=== PATIENT | female | born 1955 | race Caucasian/White ===

== ENCOUNTER 2023-03-23 07:42 | Inpatient (IN) | payer MEDICARE ==
[2023-03-23] MEDS ORDERED: MORPHINE SULFATE 4 MG/ML SYRINGE IV STA (08:30)
--- NOTE | 2023-03-23 08:34 | ED ---
General Adult HPI - General Chief complaint: Neck Pain/Injury Stated complaint: neck/head pain Time Seen by Provider: 03/23/23 08:12 Source: patient Mode of arrival: ambulatory Limitations: no limitations - History of Present Illness Initial comments: Dictation was produced using Clever dictation software. please excuse any grammatical, word or spelling errors. Chief Complaint: 67-year-old female presents with 2 days of neck pain History of Present Illness: 67-year-old female she presents to the ER for 2 days of left-sided neck pain. States that it's closer to her year. Is not worse when she turns her head or bends her head and neck. States that it hurts when she touches it. Denies any fevers. She is currently battling cellulitis. She's been on antibiotics for several weeks now. She does complain of some constitutional symptoms. Denies a sore throat. No runny nose. No cough. No diarrhea or urinary symptoms. The ROS documented in this emergency department record has been reviewed and confirmed by me. Those systems with pertinent positive or negative responses have been documented in the HPI. All other systems are other negative and/or noncontributory. - Related Data Allergies Allergy/AdvReac Type Severity Reaction Status Date / Time No Known Allergies Allergy Verified 03/23/23 08:05 Review of Systems ROS Statement: Those systems with pertinent positive or pertinent negative responses have been documented in the HPI. ROS Other: All systems not noted in ROS Statement are negative. Past Medical History Additional Past Medical History / Comment(s): Cellulitis legs History of Any Multi-Drug Resistant Organisms: None Reported Past Surgical History: No Surgical Hx Reported Past Psychological History: No Psychological Hx Reported Smoking Status: Never smoker Past Alcohol Use History: None Reported Past Drug Use History: None Reported General Exam - General Exam Comments Initial Comments: PHYSICAL EXAM: General Impression: Alert and oriented x3, not in acute distress HEENT: Normocephalic atraumatic, extra-ocular movements intact, pupils equal and reactive to light bilaterally, mucous membranes moist, palpatory tenderness to the superior insertion of the left sternocleidomastoid, there does appear to be a non-enlarged tender lymph node to the posterior cervical chain. No mastoid tenderness, TM on the left ear is unremarkable. Cardiovascular: Heart regular rate and rhythm Chest: Able to complete full sentences, no retractions, no tachypnea Abdomen: abdomen soft, non-tender, non-distended, no organomegaly Musculoskeletal: Pulses present and equal in all extremities, no peripheral steff ma Motor: no focal deficits noted Neurological: CN II-XII grossly intact, no focal motor or sensory deficits noted Skin: Intact with no visualized rashes Psych: Normal affect and mood Limitations: no limitations Course Vital Signs 03/23/23 08:03 Temperature 98.1 F Pulse Rate 83 Respiratory 20 Rate Blood Pressure 122/85 O2 Sat by Pulse 99 Oximetry Medical Decision Making - Medical Decision Making Was pt. sent in by a medical professional or institution (, PA, VIDEO NETWORK ENGINEER, urgent care, hospital, or care home...) When possible be specific @ -No Did you speak to anyone other than the patient for history (EMS, parent, family, police, friend...)? What history was obtained from this source @ -Discussed with as described above Did you review nursing and triage notes (agree or disagree)? Why? @ -I reviewed and agree with nursing and triage notes Were old charts reviewed (outside hosp., previous admission, EMS record, old EKG, old radiological studies, urgent care reports/EKG's, care home records)? Report findings @ -No old charts were reviewed Differential Diagnosis (chest pain, altered mental status, abdominal pain women, abdominal pain men, vaginal bleeding, musculoskeletal, weakness, fever, dyspnea, syncope, headache, dizziness, GI bleed, back pain, seizure, CVA, palpatations, mental health)? @ -Differential Fever: Pneumonia, viral URI, endocarditis, myocarditis, pericarditis, otitis, sinusitis, peritonsillar Abscess, retropharyngeal Abscess, epiglottitis, peritonitis, appendicitis, Maria L cystitis, diverticulitis, hepatitis, colitis, UTI, PID, TOA, pyelonephritis, prostatitis, epididymitis, meningitis, encephalitis, pulmonary embolism, CVA, thyroid storm, pancreatitis, adrenal crisis, cavernous sinus thrombosis, this is not meant to be an all-inclusive list. EKG interpreted by me (3pts min.). @ -None done X-rays interpreted by me (1pt min.). @ -None done CT interpreted by me (1pt min.). @ -None done U/S interpreted by me (1pt. min.). @ -None done What testing was considered but not performed or refused? (CT, X-rays, U/S, labs)? Why? @ -None What meds were considered but not given or refused? Why? @ -None Did you discuss the management of the patient with other professionals (professionals i.e. , PA, VIDEO NETWORK ENGINEER, lab, RT, psych nurse, web content & social media manager, career portals teacher, teacher, housing officer, casework manager)? Give summary @ -Discussed with hospitalist for admission Was smoking cessation discussed for >3mins.? @ -No Was critical care preformed (if so, how long)? @ -No Were there social determinants of health that impacted care today? How? (Homelessness, low income, unemployed, alcoholism, drug addiction, transportation, low edu. Level, literacy, decrease access to med. care, [facility], rehab)? @ -No Was there de-escalation of care discussed even if they declined (Discuss DNR or withdrawal of care, Hospice)? DNR status @ -No What co-morbidities impacted this encounter? (DM, HTN, Smoking, COPD, CAD, Cancer, CVA, ARF, Chemo, Hep., AIDS, mental health diagnosis, sleep apnea, morbid obesity)? @ -None Was patient admitted / discharged? Hospital course, mention meds given and route, prescriptions, significant lab abnormalities, going to OR and other pertinent info. @ -67-year-old female who reports constitutional symptoms and neck pain. States that she's been on antibiotics for alleged cellulitis. Her skin does not appear to be cellulitic. She does have constitutional symptoms. Leukopenia 2.3 she does appear to have dehydration. She states she does not feel well. There is concern of underlying infectious process versus hematologic issue. Patient be admitted for SIRS pending blood cultures urine studies. Undiagnosed new problem with uncertain prognosis? @ -No Drug Therapy requiring intensive monitoring for toxicity (Heparin, Nitro, Insulin, Cardizem)? @ -No Were any procedures done? @ -No Diagnosis/symptom? Acute, or Chronic, or Acute on Chronic? Uncomplicated ( without systemic symptoms) or Complicated (systemic symptoms)? @ -SIRS Side effects of treatment? @ -No Exacerbation, Progression, or Severe Exacerbation? @ -No Poses a threat to life or bodily function? How? (Chest pain, USA, GA, pneumonia, PE, COPD, DKA, ARF, appy, cholecystitis, CVA, Diverticulitis, Homicidal, Suicidal, threat to staff... and all critical care pts) @ -yes - Lab Data Result diagrams: 03/23/23 08:36 03/23/23 08:36 Lab Results 03/23/23 03/23/23 03/23/23 Range/Units 08:36 08:36 08:36 WBC 2.3 L (3.8-10.6) k/uL RBC 4.34 (3.80-5.40) m/uL Hgb 13.5 (11.4-16.0) gm/dL Hct 38.9 (34.0-46.0) % MCV 89.6 (80.0-100.0) fL MCH 31.2 (25.0-35.0) pg MCHC 34.8 (31.0-37.0) g/dL RDW 12.0 (11.5-15.5) % Plt Count 90 L (150-450) k/uL MPV 8.3 Neutrophils % (Manual) 64 % Band Neuts % (Manual) 6 % Lymphocytes % (Manual) 20 % Monocytes % (Manual) 6 % Eosinophils % (Manual) 4 % Neutrophils # (Manual) 1.60 (1.3-7.7) k/uL Lymphocytes # (Manual) 0.46 L (1.0-4.8) k/uL Monocytes # (Manual) 0.14 (0-1.0) k/uL Eosinophils # (Manual) 0.09 (0-0.7) k/uL Nucleated RBCs 0 (0-0) /100 WBC Manual Slide Review Performed Polychromasia Present Sodium 131 L (137-145) mmol/L Potassium 4.5 (3.5-5.1) mmol/L Chloride 100 (98-107) mmol/L Carbon Dioxide 16 L (22-30) mmol/L Anion Gap 15 mmol/L BUN 22 H (7-17) mg/dL Creatinine 1.61 H (0.52-1.04) mg/dL Est GFR (CKD-EPI)AfAm 37 (>60 ml/min/1.73 sqM) Est GFR (CKD-EPI)NonAf 32 (>60 ml/min/1.73 sqM) Glucose 92 (74-99) mg/dL Calcium 8.8 (8.4-10.2) mg/dL Influenza Type A (PCR) Not Detected (Not Detectd) Influenza Type B (PCR) Not Detected (Not Detectd) RSV (PCR) Not Detected (Not Detectd) SARS-CoV-2 (PCR) Not Detected (Not Detectd) Disposition Clinical Impression: SIRS (systemic inflammatory response syndrome) Disposition: ADMITTED IP TO THIS [facility] Condition: Fair Referrals: Liza Levine MD [Primary Care Provider] - 1-2 days Decision Time: 11:46
[2023-03-23 08:57] LABS: HCT 38.9 % (34.0-46.0); HGB 13.5 gm/dL (11.4-16.0); MCH 31.2 pg (25.0-35.0); MCHC 34.8 g/dL (31.0-37.0); MCV 89.6 fL (80.0-100.0); Mean Platelet Volume 8.3; RBC 4.34 m/uL (3.80-5.40); WBC 2.3 k/uL (3.8-10.6)
[2023-03-23 09:08] LABS: African American GFR (CKD) 37 (>60 ml/min/1.73 sqM); Anion Gap 15 mmol/L; Blood Urea Nitrogen 22 mg/dL (7-17); Calcium 8.8 mg/dL (8.4-10.2); Carbon Dioxide 16 mmol/L (22-30); Chloride 100 mmol/L (98-107); Glucose 92 mg/dL (74-99); Non-African American GFR(CKD) 32 (>60 ml/min/1.73 sqM); Potassium 4.5 mmol/L (3.5-5.1); Sodium 131 mmol/L (137-145)
[2023-03-23] MEDS ORDERED: SODIUM CHLORIDE 0.9% 1,000 ML IV STA ×2 (10:32→14:17)
[2023-03-23 10:47] LABS: Band Neutrophils % 6 %; Eosinophils # (M) 0.09 k/uL (0-0.7); Lymphocytes # (M) 0.46 k/uL (1.0-4.8); Monocytes # (M) 0.14 k/uL (0-1.0); Neutrophils % (M) 64 %; Nucleated Red Blood Cells 0 /100 WBC (0-0); Total Cells Counted 100
[2023-03-23 10:48] LABS: Platelet Count 90 k/uL (150-450); Polychromasia Present
[2023-03-23] MEDS ORDERED: ACETAMINOPHEN TAB 325 MG TAB PO PRN (11:41)
[2023-03-23] MEDS ORDERED: NALOXONE 0.4 MG/ML 1 ML VIAL IV PRN (11:41)
[2023-03-23] MEDS ORDERED: SODIUM CHLORIDE 0.9% 1,000 ML IV SCH (11:45)
[2023-03-23 12:06] LABS: Appearance,Urine Clear (Clear); Bacteria,Urine Rare /hpf; Bilirubin,Urine Negative (Negative); Blood,Urine Small (Negative); Color,Urine Light Yellow; Glucose,Urine (UA) Negative (Negative); Ketones,Urine Negative (Negative); Leukocyte Esterase,Urine Negative (Negative); Mucus,Urine Rare /hpf; Nitrite,Urine Negative (Negative); PH, Urine 5.5 (5.0-8.0); Protein,Urine Negative (Negative); RBC,Urine 17 /hpf (0-5); Specific Gravity,Urine 1.012 (1.001-1.035); Squamous Epithelial Cell,Urine <1 /hpf (0-4); Urobilinogen,Urine <2.0 mg/dL (<2.0); WBC,Urine 3 /hpf (0-5)
[2023-03-23] MEDS ORDERED: RX INFO: IV CONTRAST WAS GIVEN 1 EACH MISC MISCELLANE PRN (14:11)
[2023-03-23] MEDS: MORPHINE SULFATE 4 MG/ML SYRINGE IVP PRN ×2 (15:27→20:24)
--- NOTE | 2023-03-23 15:27 | CT ---
EXAMINATION TYPE: CT brain wo con DATE OF EXAM: 03/23/2023 COMPARISON: None HISTORY: cellulitis, rule out abscess. no contrast due to poor kidney fx CT DLP: 1083.[address] of the brain was performed. Right frontal lesion measuring 1.8 cm with surrounding vasogenic edema could reflect a metastatic les ion, primary glioma or abscess. MRI is recommended with and without contrast. No additional lesions i dentified. The ventricles, basal cisterns and sulci overlying the cerebral convexities demonstrate mild enlargem ent. There is no evidence for intracranial hemorrhage or sulcal effacement. There is decreased attenuation about the periventricular white matter and deep white matter of both c erebral hemispheres, compatible with chronic small vessel ischemia. Differential diagnosis does inclu de demyelination. No mass effects are seen.No midline shift. Osseous calvarium is intact. If symptoms persist consider MRI. IMPRESSION: 1. Right frontal lesion measuring 1.8 cm with surrounding vasogenic edema could reflect a metastatic lesion, primary glioma or abscess. MRI is recommended with and without contrast. No additional lesion s identified.
--- NOTE | 2023-03-23 15:50 | CT ---
Exclude EXAMINATION TYPE: CT neck chest without con DATE OF EXAM: 03/23/2023 COMPARISON: None HISTORY: cellulitis, rule out abscess. no contrast due to poor kidney fx CT DLP: [address] of the neck was performed without contrast limiting evaluation from the skull base through the antonio g apices. Contrast enhanced CT of the neck was performed from the skull base through the lung apices. AIRWAY: The supraglottic, glottic, and subglottic portions of the airway appear patent and free of mass. SALIVARY GLANDS: Mild edema left submandibular gland may reflect underlying laboratory change. No naun dence for abscess about the neck. THYROID GLAND: No nodules or masses seen. LYMPH NODES: Adenopathy left internal jugular chain measuring up to 2.6 x 1.6 cm. Additional 1.4 cm l ymph node. Apparently 1 cm lymph nodes bilaterally within the internal jugular chains. Subcentimeter lymph nodes posterior triangles bilaterally. LUNG APICES: No nodule or mass is seen. OTHER: Vascular structures are patent. No significant degenerative change of the cervical spine. N o abscess seen. There is masslike density right breast with skin thickening suspicious for malignancy . There is right axillary adenopathy measuring up to 2.6 cm. Additional enlarged lymph nodes are seen measuring greater than 1 cm right axilla. Sub-1 cm lymph nodes are seen within the left axilla. Mamm ographic and sonographic correlation recommended as malignancy is suspected. IMPRESSION: 1.There is masslike density right breast with skin thickening suspicious for malignancy. There is rig ht axillary adenopathy measuring up to 2.6 cm. Additional enlarged lymph nodes are seen measuring gre ater than 1 cm right axilla. Sub-1 cm lymph nodes are seen within the left axilla. Mammographic and s onographic correlation recommended as malignancy is suspected. 2. Mild fullness left submandibular gland with mild surrounding stranding which may reflect inflammat ory change and sialoadenitis. No evidence for abscess of the neck. EXAMINATION TYPE: CT neck chest without con DATE OF EXAM: 03/23/2023 COMPARISON: None HISTORY: cellulitis, rule out abscess. no contrast due to poor kidney fx CT DLP: [address] of the chest was performed with lung and mediastinal window settings submitted. The la ck of contrast limits evaluation of the vascular, mediastinal and parenchymal structures including th e upper abdomen. LUNGS: The lungs are clear and free of infiltrate. No atelectasis. No pulmonary nodule or mass is de tected. No pleural effusion. No CT evidence of interstitial lung disease. MEDIASTINUM/SHWETA: Thoracic aorta is of normal caliber with limited evaluation given lack of contrast . The heart is not enlarged. No evidence for mediastinal mass. No lymph nodes greater than 1cm. UPPER ABDOMEN: Partially imaged adrenal glands demonstrates masslike thickening. This dedicated CT of the abdomen and pelvis is recommended on a nonemergent basis. OTHER: No significant other abnormality. IMPRESSION: 1. Right breast mass with skin thickening right axillary adenopathy suspicious felt to reflect malig darshan of the breast until proven otherwise. Mammographic and sonographic correlation advised. 2. Bilateral adrenal thickening suspicious for metastatic disease.
--- NOTE | 2023-03-23 22:59 | P.CONS ---
History of Present Illness - Reason for Consult Consult date: 03/23/23 - History of Present Illness Patient is a 67-year-old female with a past medical history significant for an episode of cellulitis to the left lower abdominal wall and left upper thigh that was diagnosed and treated when she was in [place] patient mention after coming back she was evaluated by her primary care physician and apparently did have features of persistent cellulitis and received another course of antibiotic also mentioning that she received a course of antibiotic for the right mastitis patient about presenting to [facility] ER this morning for evaluation of left-sided neck pain that the pain has been going on for the last 2 days patient denies any history of any trauma describes the pain to be around her neck in the bed from intensity moderate without any significant radiation patient denies having any problem with hearing or URI symptoms and no drainage from the ear patient did have some nausea and vomiting no chest pain shortness of breath or cough no abdominal pain or diarrhea patient on presentation to the hospital was afebrile patient was not tachycardic hypotensive or hypoxic White count was slightly low at 2.3 with lymphopenia BUN/creatinine mildly elevated urine has been negative influenza RSV and COVID testing was negative, patient has been admitted to the floor subsequently the patient did have a CT of the neck and the brain which has been completed with report pending infectious he was consulted regarding possible cellulitis and need for antibiotic therapy Past Medical History Additional Past Medical History / Comment(s): Cellulitis legs History of Any Multi-Drug Resistant Organisms: None Reported Past Surgical History: No Surgical Hx Reported Past Psychological History: No Psychological Hx Reported Smoking Status: Never smoker Past Alcohol Use History: None Reported Past Drug Use History: None Reported - Past Family History Father Family Medical History: No Reported History Medications and Allergies Home Medications Medication Instructions Recorded Confirmed Type Sulfamethox-Tmp 800-160Mg [Bactrim 1 tab PO BID 03/23/23 03/23/23 History DS 800-160 mg] Allergies Allergy/AdvReac Type Severity Reaction Status Date / Time cat dander Allergy eye Verified 03/23/23 12:24 swelling & itching poison chris extract Allergy Rash/Hives Verified 03/23/23 12:24 Physical Exam Vitals: Vital Signs Temp Pulse Resp BP Pulse Ox 03/23/23 08:03 98.1 F 83 20 122/85 99 Intake and Output 03/22/23 03/23/23 03/23/23 22:59 06:59 14:59 Other: Weight 60.328 kg Results CBC & Chem 7: 03/23/23 08:36 03/23/23 08:36 Labs: Abnormal Lab Results - Last 24 Hours (Table) 03/23/23 03/23/23 03/23/23 Range/Units 08:36 08:36 11:52 WBC 2.3 L (3.8-10.6) k/uL Plt Count 90 L (150-450) k/uL Lymphocytes # (Manual) 0.46 L (1.0-4.8) k/uL Sodium 131 L (137-145) mmol/L Carbon Dioxide 16 L (22-30) mmol/L BUN 22 H (7-17) mg/dL Creatinine 1.61 H (0.52-1.04) mg/dL Urine Blood Small H (Negative) Urine RBC 17 H (0-5) /hpf Urine Bacteria Rare H (None) /hpf Urine Mucus Rare H (None) /hpf Assessment and Plan Plan: 1patient presented to hospital with pain to the left side of the neck currently there is no evidence of any swelling and redness to be suspicious for cellulitis, patient did have a CT of the neck to rule out any deeper pathology with the report currently pending 2-patient also was complaining of cellulitis to the left abdominal and left upper thigh area currently with no signs of any cellulitis 3-patient did mention some swelling and cellulitis to the right breast area patient did have slight enlargement of the right breast compared to the left and other etiologies need to be ruled out will benefit from ultrasound of the right breast area 4-patient is currently afebrile did have mild leukopenia at the patient spiking fever however recommend obtaining blood cultures and check inflammatory markers, with low clinical suspicious for infectious etiology we will hold on adding any systemic antibiotic therapy at this point We will follow on clinical condition and cultures to further adjust medication if needed Thank you for this consultation we will follow the patient along with you Dictation was produced using Catmoj[employer] software. please excuse any grammatical, word or spelling errors. Time with Patient: Greater than 30
[2023-03-24] MEDS: MORPHINE SULFATE 4 MG/ML SYRINGE IVP PRN (00:34)
[2023-03-24 09:22] LABS: Basophils % (A) 1 %; Eosinophils # (A) 0.1 k/uL (0-0.7); Eosinophils % (A) 3 %; HCT 37.6 % (34.0-46.0); HGB 12.2 gm/dL (11.4-16.0); Lymphocytes # (A) 0.6 k/uL (1.0-4.8); Lymphocytes % (A) 23 %; MCH 30.9 pg (25.0-35.0); MCHC 32.5 g/dL (31.0-37.0); Mean Platelet Volume 7.7; Monocytes # (A) 0.2 k/uL (0-1.0); Monocytes % (A) 9 %; Neutrophils # (A) 1.4 k/uL (1.3-7.7); Neutrophils % (A) 60 %; Platelet Count 101 k/uL (150-450); RBC 3.95 m/uL (3.80-5.40); RDW 12.4 % (11.5-15.5); WBC 2.4 k/uL (3.8-10.6)
[2023-03-24 09:30] LABS: MCV 95.1 fL (80.0-100.0)
[2023-03-24 12:06] LABS: ALT 23 U/L (8-44); AST 34 U/L (13-35); Albumin 3.6 g/dL (3.8-4.9); Alkaline Phosphatase 42 U/L (41-126); Calcium 7.8 mg/dL (8.7-10.3); Chloride 102 mmol/L (96-109); Globulin 2.4 g/dL (1.6-3.3); Glucose 101 mg/dL (70-110); Potassium 4.4 mmol/L (3.5-5.5); Sodium 130 mmol/L (135-145); Total Bilirubin 0.2 mg/dL (0.3-1.2)
[2023-03-24] MEDS ORDERED: IOPAMIDOL CONTRAST (ORAL USE) VIAL PO PRN (12:39)
--- NOTE | 2023-03-24 14:48 | P.HPIM ---
History of Present Illness H&P Date: 03/23/23 Xochilt Merida, is a 67 year-old female who presented to [facility] ER with a chief complaints of left neck pain. Patient reports the pain started significantly over the past 2 days on her left-sided neck and is sensitive to touch. Patient reports she has been having issues with cellulitis on multiple parts of her body was treated outpatient. Patient reports started on her legs and her chest wall she was concerned that he could be on her neck but no signs of rash noted. Patient has a past medical history of ovarian cancer in 2016. Patient denies any other recent illness this is the cellulitis. Patient denies weight loss or decreased appetite. At this time patient will be admitted. Infectious disease service is consulted. Patient was started on IV antibiotics vital signs reveal temp 98.6, heart rate 79, respiratory rate 17, blood pressure 130/78 with a pulse ox 98% on room air. Review of Systems Please refer to HPI otherwise unremarkable Past Medical History Additional Past Medical History / Comment(s): Cellulitis legs History of Any Multi-Drug Resistant Organisms: None Reported Past Surgical History: No Surgical Hx Reported Past Psychological History: No Psychological Hx Reported Smoking Status: Never smoker Past Alcohol Use History: None Reported Past Drug Use History: None Reported - Past Family History Father Family Medical History: No Reported History Medications and Allergies Home Medications Medication Instructions Recorded Confirmed Type Sulfamethox-Tmp 800-160Mg [Bactrim 1 tab PO BID 03/23/23 03/23/23 History DS 800-160 mg] Allergies Allergy/AdvReac Type Severity Reaction Status Date / Time cat dander Allergy eye Verified 03/23/23 12:24 swelling & itching poison chris extract Allergy Rash/Hives Verified 03/23/23 12:24 Physical Exam Vitals: Vital Signs Temp Pulse Resp BP Pulse Ox 03/23/23 13:06 98.0 F 81 16 136/76 99 03/23/23 08:03 98.1 F 83 20 122/85 99 Intake and Output 03/22/23 03/23/23 03/23/23 22:59 06:59 14:59 Other: Weight 60.328 kg Head normocephalic Neck supple Lungs clear to auscultation bilaterally no wheezing or crackles Heart regular rate and rhythm S1-S2, no rub or gallop Abdomen is soft nontender nondistended positive bowel sounds no hepatosplenomegaly Extremities no edema Neuro alert and orientated to 3 Results CBC & Chem 7: 03/24/23 07:23 03/24/23 07:23 Labs: Abnormal Lab Results - Last 24 Hours (Table) 03/23/23 03/23/23 03/23/23 Range/Units 08:36 08:36 11:52 WBC 2.3 L (3.8-10.6) k/uL Plt Count 90 L (150-450) k/uL Lymphocytes # (Manual) 0.46 L (1.0-4.8) k/uL Sodium 131 L (137-145) mmol/L Carbon Dioxide 16 L (22-30) mmol/L BUN 22 H (7-17) mg/dL Creatinine 1.61 H (0.52-1.04) mg/dL Urine Blood Small H (Negative) Urine RBC 17 H (0-5) /hpf Urine Bacteria Rare H (None) /hpf Urine Mucus Rare H (None) /hpf Assessment and Plan Assessment: 1. Left-sided neck pain 2. Recent cellulitis of the neck, treated as outpatient with oral Bactrim 3. Dehydration with acute kidney injury with elevated BUN and creatinine on presentation 4. Abnormal computed tomography scan of the head neck and chest, initially done looking for potential abscess, but revealed evidence of breast mass and brain metastases 5. Pancytopenia on presentation 6. History of ovarian cancer in 2016 DVT prophylaxis Lovenox. GI prophylaxis Protonix Infectious disease service is consulted Blood culture ordered Patient started on IV antibiotics Computed tomography scan ordered Oncology consultation requested Will follow closely Time with Patient: Greater than 30 (Greater than 60% of the total time spent in counseling and coordination of care)
--- NOTE | 2023-03-24 14:49 | P.PN ---
Subjective Progress Note Date: 03/24/23 Xochilt Merida, is a 67 year-old female who presented to [facility] ER with a chief complaints of left neck pain. Patient reports the pain started significantly over the past 2 days on her left-sided neck and is sensitive to touch. Patient reports she has been having issues with cellulitis on multiple parts of her body was treated outpatient. Patient reports started on her legs and her chest wall she was concerned that he could be on her neck but no signs of rash noted. Patient has a past medical history of ovarian cancer in 2016. Patient denies any other recent illness this is the cellulitis. Patient denies weight loss or decreased appetite. At this time patient will be admitted. Infectious disease service is consulted. Patient was started on IV antibiotics vital signs reveal temp 98.6, heart rate 79, respiratory rate 17, blood pressure 130/78 with a pulse ox 98% on room air. On 03/24/2023 patient is alert and oriented 3. Patient reports improvement with neck pain remains on IV antibiotics Kefzol. Computed tomography scan completed showing concerns of masslike density in the right breast with skin thickening suspicious for malignancy is also right axillary adenopathy measuring up to 2.6 cm with an additional enlarged lymph nodes. Head CT completed showing right frontal lesion measuring 1.8 cm with surrounding vasogenic edema could reflect a metastatic lesion. Oncology services have been consulted and results to be reviewed and interpreted per oncology Objective - Vital Signs Vital signs: Vital Signs Temp 98.0 F 03/24/23 07:19 Pulse 72 03/24/23 07:19 Resp 19 03/24/23 07:19 BP 114/67 03/24/23 07:19 Pulse Ox 98 03/24/23 07:19 FiO2 Intake & Output 03/23/23 03/24/23 03/24/23 18:59 06:59 18:59 Weight 60.328 kg Other: Voiding Method Toilet Toilet # Voids 1 2 2 - Exam Head normocephalic Neck supple Lungs clear to auscultation bilaterally no wheezing or crackles Heart regular rate and rhythm S1-S2, no rub or gallop Abdomen is soft nontender nondistended positive bowel sounds no hepatospl enomegaly Extremities no edema Neuro alert and orientated to 3 - Labs CBC & Chem 7: 03/24/23 07:23 03/24/23 07:23 Labs: Abnormal Lab Results - Last 24 Hours (Table) 03/23/23 03/24/23 Range/Units 11:52 07:23 WBC 2.4 L (3.8-10.6) k/uL Plt Count 101 L (150-450) k/uL Lymphocytes # 0.6 L (1.0-4.8) k/uL Urine Blood Small H (Negative) Urine RBC 17 H (0-5) /hpf Urine Bacteria Rare H (None) /hpf Urine Mucus Rare H (None) /hpf Assessment and Plan Plan: 1. Left-sided neck pain 2. Recent cellulitis of the neck, treated as outpatient with oral Bactrim 3. Dehydration with acute kidney injury with elevated BUN and creatinine on presentation 4. Abnormal computed tomography scan of the head neck and chest, initially done looking for potential abscess, but revealed evidence of breast mass and brain metastases 5. Pancytopenia on presentation 6. History of ovarian cancer in 2016 DVT prophylaxis Lovenox. GI prophylaxis Protonix Infectious disease service is consulted Blood culture ordered Patient started on IV antibiotics Computed tomography scan ordered Oncology consultation requested Will follow closely
--- NOTE | 2023-03-24 15:47 | P.PN ---
Subjective Progress Note Date: 03/24/23 Principal diagnosis: Reason for follow-up is question of right breast cellulitis, neck Cellulitis Patient is a 67-year-old female with a past medical history significant for an episode of cellulitis to the left lower abdominal wall and left upper thigh that was diagnosed and treated when she was in [place], also with a history of ovarian cancer presenting to the hospital with left-sided neck pain and a question of possible cellulitis On today's evaluation that is 03/24/2023, the patient denies any fever or any chills, the patient is breathing comfortably on room air without the need for supplemental oxygen, patient denies chest pain shortness of breath and no s ignificant cough or sputum production, patient denies Abdominal pain, no nausea/vomiting and denies having any diarrhea, the patient reporting improvement in the left-sided neck pain with more mobility Patient did have white count of 2.4 creatinine 1.0, patient did have a CT of the neck and chest with evidence of right breast mass with skin thickening , right axillary adenopathy, CT of the brain right frontal lesion with surrounding vasogenic edema Objective - Vital Signs Vital signs: Vital Signs Temp 98.0 F 03/24/23 07:19 Pulse 72 03/24/23 07:19 Resp 19 03/24/23 07:19 BP 114/67 03/24/23 07:19 Pulse Ox 98 03/24/23 07:19 FiO2 Intake & Output 03/23/23 03/24/23 03/24/23 18:59 06:59 18:59 Weight 60.328 kg Other: Voiding Method Toilet Toilet # Voids 1 2 2 - Exam GENERAL DESCRIPTION: An elderly female lying in bed in no distress RESPIRATORY SYSTEM: Unlabored breathing , clear to auscultation anteriorly HEART: S1 S2 regular rate and rhythm , ABDOMEN: Soft , no tenderness EXTREMITIES: No edema feet - Labs CBC & Chem 7: 03/24/23 07:23 03/24/23 07:23 Labs: Abnormal Lab Results - Last 24 Hours (Table) 03/24/23 03/24/23 Range/Units 07: 07:23 WBC 2.4 L (3.8-10.6) k/uL Plt Count 101 L (150-450) k/uL Lymphocytes # 0.6 L (1.0-4.8) k/uL Sodium 130 L (135-145) mmol/L Carbon Dioxide 20.0 L (21.6-31.8) mmol/L Calcium 7.8 L (8.7-10.3) mg/dL Total Bilirubin 0.2 L (0.3-1.2) mg/dL Total Protein 6.0 L (6.2-8.2) g/dL Albumin 3.6 L (3.8-4.9) g/dL Albumin/Globulin Ratio 1.50 L (1.60-3.17) Ratio Assessment and Plan (1) Leukopenia Current Visit: Yes Status: Acute Code(s): D72.819 - DECREASED WHITE BLOOD CELL COUNT, UNSPECIFIED SNOMED Code(s): 03040063 Plan: 1patient presented to hospital with pain to the left side of the neck currently there is no evidence of any swelling and redness to be suspicious for cellulitis, 2-patient also was complaining of cellulitis to the left abdominal and left upper thigh area currently with no signs of any cellulitis 3-patient did mention some swelling and cellulitis to the right breast area clinically not behaving as cellulitis with abnormal CT suspicious for possible metastatic breast cancer for which oncology has been consulted. We'll discontinue cefazolin Dictation was produced using [employer] dictation software. please excuse any grammatical, word or spelling errors. Time with Patient: Less than 30
--- NOTE | 2023-03-24 23:55 | P.CONS ---
History of Present Illness - Reason for Consult Consult date: 03/24/23 possible right breast mass - History of Present Illness the patient is 67-year-old white female, with overall well-controlled medical problems and baseline. The patient had presented because of left neck and left shoulder pain. The patient interestingly, or the past 3 months has had partial describes a cellulitis of the skin and different sites including the bilateral upper and outer thigh areas, as well as now the left neck area. He states that recently she had also developed swelling, and thickening with some tenderness of the right breast that had actually improved The patient had a CT of the neck and chest, as well as CT of the brain done. This showed thickening of the skin of the right breast with underlying mass not ruled out, as well as right axillary adenopathy. There appeared to be possibility of bilateral adrenal tumors. CT of the brain showed vasogenic edema involving The right frontal lobe, concerning for mass. patient had a history of ovarian cancer, treated with surgery and chemotherapy by Dr. Bejarano in 2016. She states that she is on regular follow-up, including CT scans, in the most recent done 3-4 months ago according to her. Review of Systems Constitutional: Reports fatigue Eyes: denies blurred vision, denies pain Ears: deny: decreased hearing, ear discharge, earache, tinnitus Ears, nose, mouth and throat: Denies headache, Denies sore throat Breasts: right: as per HPI Cardiovascular: Denies chest pain, Denies shortness of breath Respiratory: Denies cough Gastrointestinal: Denies abdominal pain, Denies diarrhea, Denies nausea, Denies vomiting Genitourinary: Reports as per HPI Menstruation: Reports postmenopausal Musculoskeletal: Reports as per HPI Integumentary: Reports as per HPI Neurological: Denies numbness, Denies weakness Psychiatric: Denies anxiety, Denies depression Endocrine: Denies fatigue, Denies weight change Hematologic/Lymphatic: Reports as per HPI Past Medical History Additional Past Medical History / Comment(s): Cellulitis legs History of Any Multi-Drug Resistant Organisms: None Reported Past Surgical History: No Surgical Hx Reported Past Psychological History: No Psychological Hx Reported Smoking Status: Never smoker Past Alcohol Use History: None Reported Past Drug Use History: None Reported - Past Family History Father Family Medical History: No Reported History Medications and Allergies Home Medications Medication Instructions Recorded Confirmed Type Sulfamethox-Tmp 800-160Mg [Bactrim 1 tab PO BID 11/23/23 11/23/23 History DS 800-160 mg] Allergies Allergy/AdvReac Type Severity Reaction Status Date / Time cat dander Allergy eye Verified 03/23/23 12:24 swelling & itching poison chris extract Allergy Rash/Hives Verified 03/23/23 12:24 Physical Exam Vitals: Vital Signs Temp Pulse Resp BP Pulse Ox 03/24/23 20:08 98 F 75 18 148/80 97 03/24/23 14:00 98.5 F 78 18 129/80 98 03/24/23 07:19 98.0 F 72 19 114/67 98 03/24/23 07:00 72 19 03/24/23 01:37 98.4 F 75 18 114/68 97 Intake and Output 03/24/23 03/24/23 03/25/23 14:59 22:59 06:59 Other: Voiding Method Toilet # Voids 2 6 # Bowel Movements 1 - Constitutional General appearance: no acute distress - EENT Eyes: EOMI, PERRLA ENT: hearing grossly normal, normal oropharynx - Neck Neck: no lymphadenopathy, other (thickening of the skin of the left upper neck, with tenderness on palpation) Thyroid: bilateral: normal size - Respiratory Respiratory: bilateral: CTA - Cardiovascular Rhythm: regular Heart sounds: normal: S1, S2 - Gastrointestinal General gastrointestinal: normal bowel sounds, soft - Integumentary skin finding left upper neck Right breast examination reveals some induration involving the right lateral breast, a somewhat more prominent thickening in the retroareolar area - Neurologic Neurologic: CNII-XII intact - Musculoskeletal Musculoskeletal: strength equal bilaterally - Psychiatric Psychiatric: A&O x's 3 (right breast exam done in presence of female RN. Some thickening of the skin of the right lateral breast, without erythema or tenderness. This is more prominent in the retro etiology area, with underlying mass not ruled out) breast exam, with findings as noted above Patient also has a large lymph node, form to hard, in the right central axilla that appears to be relatively immobile. This is about 3-4 cm Results CBC & Chem 7: 03/24/23 07:23 03/24/23 07:23 Labs: Abnormal Lab Results - Last 24 Hours (Table) 03/24/23 03/24/23 Range/Units 07:23 07:23 WBC 2.4 L (3.8-10.6) k/uL Plt Count 101 L (150-450) k/uL Lymphocytes # 0.6 L (1.0-4.8) k/uL Sodium 130 L (135-145) mmol/L Carbon Dioxide 20.0 L (21.6-31.8) mmol/L Calcium 7.8 L (8.7-10.3) mg/dL Total Bilirubin 0.2 L (0.3-1.2) mg/dL Total Protein 6.0 L (6.2-8.2) g/dL Albumin 3.6 L (3.8-4.9) g/dL Albumin/Globulin Ratio 1.50 L (1.60-3.17) Ratio Comments: CT neck report reviewed CT scan - chest: report reviewed CT Scan - head: report reviewed Assessment and Plan (1) Breast mass Narrative/Plan: the patient's imaging, as well as physical exam findings are not definitive for a breast mass, but the same is not ruled out. The patient does have significan tly enlarged lymph node in the right axilla The imaging findings and implications were discussed in detail with her. She was advised that these findings are concerning for malignancy an additional w orkup would be strongly recommended to try to confirm, or rule out, the same. - I recommended right breast and right axillary ultrasound, with plan for a diagnostic procedure that this biopsy revealing ultrasound is suspicious. Current Visit: Yes Status: Acute Code(s): N63.0 - UNSPECIFIED LUMP IN UNSPECIFIED BREAST SNOMED Code(s): 30788796 (2) Brain mass Narrative/Plan: the CT scan raises the possibility of a right frontal lobe mass. The patient is asymptomatic. We discussed these findings, and MRI of the brain with contrast was strongly recommended the patient was agreeable to proceeding in this was ordered Current Visit: Yes Status: Acute Code(s): G93.89 - OTHER SPECIFIED DISORDERS OF BRAIN SNOMED Code(s): 770651169 (3) Bicytopenia Narrative/Plan: etiology is not immediately clear. This could be due to a bone marrow with some chronic, ongoing damage from her previous chemotherapy, superimposed infection, versus other. Labs workup the same will be ordered. Current Visit: Yes Status: Acute Code(s): D75.89 - OTHER SPECIFIED DISEASES OF BLOOD AND BLOOD-FORMING ORGANS SNOMED Code(s): 00749235 Plan: the above plan was discussed in detail with ID. They feel that on clinical exam, actually cellulitis appears to be somewhat less likely. add : the above plan was discussed in detail with the patient will bleed to the same. I was subsequently informed by nursing that the patient had refused the scans, and wanted to follow-up with Dr. Bejarano for further workup. She was advised that he is purely a [employer]ITION [employer]IST[employer] onc specialist, but at this time the patient remained unwilling to change her decision
[2023-03-25] MEDS: PANTOPRAZOLE 40 MG TABLET PO SCH (06:11)
[2023-03-25] MEDS: ENOXAPARIN 40 MG/0.4 ML SYRINGE SQ SCH (08:48)
[2023-03-25 09:34] LABS: Basophils # (A) 0.01 X 10*3/uL (0.00-0.10); Basophils % (A) 0.3 %; Eosinophils # (A) 0.13 X 10*3/uL (0.04-0.35); Eosinophils % (A) 4.3 %; HCT 40.3 % (37.2-46.3); HGB 13.3 g/dL (12.0-15.0); Lymphocytes # (A) 1.39 X 10*3/uL (0.90-5.00); Lymphocytes % (A) 45.7 %; Mean Platelet Volume 9.8 FL (9.5-12.2); Monocytes # (A) 0.43 X 10*3/uL (0.20-1.00); Monocytes % (A) 14.1 %; NRBC Per 100 WBC 0 X 10*3/uL (0.00-0.01); Neutrophils # (A) 1.07 X 10*3/uL (1.80-7.70); Neutrophils % (A) 35.3 %; Platelet Count 149 X 10*3/uL (140-440); RBC 4.43 X 10*6/uL (4.10-5.20); WBC 3.04 X 10*3/uL (4.50-10.00)
[2023-03-25 10:14] LABS: ALT 24 U/L (8-44); AST 33 U/L (13-35); Albumin 4.2 g/dL (3.8-4.9); Albumin/Globulin Ratio 1.45 Ratio (1.60-3.17); Alkaline Phosphatase 48 U/L (41-126); Blood Urea Nitrogen 12.6 mg/dL (9.0-27.0); Calcium 8.9 mg/dL (8.7-10.3); Carbon Dioxide 21.2 mmol/L (21.6-31.8); Chloride 107 mmol/L (96-109); Globulin 2.9 g/dL (1.6-3.3); Glucose 94 mg/dL (70-110); Potassium 4.4 mmol/L (3.5-5.5); Sodium 137 mmol/L (135-145); Total Bilirubin 0.3 mg/dL (0.3-1.2); Total Protein 7.1 g/dL (6.2-8.2)
[2023-03-25] MEDS ORDERED: VANCOMYCIN IV PER PHARMACY 1 EACH MISC MISCELLANE PRN (10:39)
[2023-03-25] MEDS ORDERED: VANCOMYCIN 1,000 MG in SODIUM CHLORIDE 0.9% 250 ML IVPB SCH (11:00)
--- NOTE | 2023-03-25 20:29 | P.PN ---
Subjective Progress Note Date: 03/25/23 Principal diagnosis: Reason for follow-up is question of right breast cellulitis, neck Cellulitis Patient is a 67-year-old female with a past medical history significant for an episode of cellulitis to the left lower abdominal wall and left upper thigh that was diagnosed and treated when she was in [place], also with a history of ovarian cancer presenting to the hospital with left-sided neck pain and a question of possible cellulitis On today's evaluation that is 03/25/2023, the patient remains to be afebrile, the patient is breathing comfortably on room air and the patient denies any shortness of breath, the patient denies chest pain or any cough , patient denies any nausea/vomiting abdominal pain or diarrhea, patient pain to the neck area has improved. Patient did have a white count of 3.04, creatinine is 1.0, blood cultures Grew positive gram-positive cocci. Objective - Vital Signs Vital signs: Vital Signs Temp 98.2 F 03/25/23 07:13 Pulse 71 03/25/23 07:13 Resp 16 03/25/23 07:13 BP 136/82 03/25/23 07:13 Pulse Ox 98 03/25/23 07:13 FiO2 Intake & Output 03/24/23 03/25/23 03/25/23 18:59 06:59 18:59 Other: Voiding Method Toilet Toilet # Voids 6 2 # Bowel Movements 1 1 - Exam GENERAL DESCRIPTION: An elderly female lying in bed in no distress RESPIRATORY SYSTEM: Unlabored breathing , clear to auscultation anteriorly HEART: S1 S2 regular rate and rhythm , ABDOMEN: Soft , no tenderness EXTREMITIES: No edema feet - Labs CBC & Chem 7: 03/25/23 06:19 03/25/23 06:19 Labs: Abnormal Lab Results - Last 24 Hours (Table) 03/24/23 03/25/23 03/25/23 Range/Units 07:23 06:19 06:19 WBC 3.04 L (4.50-10.00) X 10*3/uL Neutrophils # 1.07 L (1.80-7.70) X 10*3/uL Sodium 130 L (135-145) mmol/L Carbon Dioxide 20.0 L 21.2 L (21.6-31.8) mmol/L Calcium 7.8 L (8.7-10.3) mg/dL Total Bilirubin 0.2 L (0.3-1.2) mg/dL Total Protein 6.0 L (6.2-8.2) g/dL Albumin 3.6 L (3.8-4.9) g/dL Albumin/Globulin Ratio 1.50 L 1.45 L (1.60-3.17) Ratio Microbiology - Last 24 Hours (Table) 03/23/23 08:47 Blood Culture Gram Stain - Preliminary Blood 03/23/23 08:30 Blood Culture - Preliminary Blood Assessment and Plan (1) Leukopenia Current Visit: Yes Status: Acute Code(s): D72.819 - DECREASED WHITE BLOOD CELL COUNT, UNSPECIFIED SNOMED Code(s): 41958785 Plan: 1patient presented to hospital with pain to the left side of the neck currently there is no evidence of any swelling and redness to be suspicious for cellulitis, 2-patient also was complaining of cellulitis to the left abdominal and left upper thigh area currently with no signs of any cellulitis 3patient with a positive blood culture with gram-positive cocci which could not be identified by [employer] with question of micrococcus and likely contamination as the patient has no clinical disease to go along with it patient is afebrile and no leukocytosis this was explained to the patient and her in layman terms that more likely she does not have a true bladder infection however they have been very concerned and has been insisting on antibiotic therapy vancomycin has been added blood cultures have been repeated before addition of the vancomycin we will wait for the blood cultures to be finalized and for now continue with vancomycin while watching his kidney function closely significant mount of time was spent with the patient and has been and multiple questions were answered Dictation was produced using [employer] software. please excuse any grammatical, word or spelling errors.
[2023-03-26 08:34] VITALS: BP 121/84; PULSE 85; RESP 16; TEMP 98.1
[2023-03-26] MEDS: ENOXAPARIN 40 MG/0.4 ML SYRINGE SQ SCH (09:02)
[2023-03-26] MEDS: PANTOPRAZOLE 40 MG TABLET PO SCH (09:02)
--- NOTE | 2023-03-26 10:06 | P.PN ---
Subjective Progress Note Date: 03/25/23 Xochilt Merida, is a 67 year-old female who presented to [facility] ER with a chief complaints of left neck pain. Patient reports the pain started significantly over the past 2 days on her left-sided neck and is sensitive to touch. Patient reports she has been having issues with cellulitis on multiple parts of her body was treated outpatient. Patient reports started on her legs and her chest wall she was concerned that he could be on her neck but no signs of rash noted. Patient has a past medical history of ovarian cancer in 2016. Patient denies any other recent illness this is the cellulitis. Patient denies weight loss or decreased appetite. At this time patient will be admitted. Infectious disease service is consulted. Patient was started on IV antibiotics vital signs reveal temp 98.6, heart rate 79, respiratory rate 17, blood pressure 130/78 with a pulse ox 98% on room air. On 03/24/2023 patient is alert and oriented 3. Patient reports improvement with neck pain remains on IV antibiotics Kefzol. Computed tomography scan completed showing concerns of masslike density in the right breast with skin thickening suspicious for malignancy is also right axillary adenopathy measuring up to 2.6 cm with an additional enlarged lymph nodes. Head CT completed showing right frontal lesion measuring 1.8 cm with surrounding vasogenic edema could reflect a metastatic lesion. Oncology services have been consulted and results to be reviewed and interpreted per oncology On 03/25/2023 patient is alert and oriented 3. In-depth conversation held with patient and all questions answered. Awaiting repeat blood culture 90 recommendation. At this time patient denies chest pain or shortness of breath. Patient denies nausea vomiting or diarrhea. Patient denies any urinary burning or frequency Objective - Vital Signs Vital signs: Vital Signs Temp 98.1 F 03/26/23 07:28 Pulse 85 03/26/23 07:28 Resp 16 03/26/23 07:28 BP 121/84 03/26/23 07:28 Pulse Ox 98 03/26/23 07:28 FiO2 Intake & Output 03/25/23 03/26/23 03/26/23 18:59 06:59 18:59 Intake Total 1080 Balance 1080 Intake: Oral 1080 Other: Voiding Method Toilet # Voids 3 2 - Exam Head normocephalic Neck supple Lungs clear to auscultation bilaterally no wheezing or crackles Heart regular rate and rhythm S1-S2, no rub or gallop Abdomen is soft nontender nondistended positive bowel sounds no hepatosplenomegaly Extremities no edema Neuro alert and orientated to 3 - Labs CBC & Chem 7: 03/25/23 06:19 03/25/23 06:19 Labs: Abnormal Lab Results - Last 24 Hours (Table) 03/25/23 Range/Units 06:19 Carbon Dioxide 21.2 L (21.6-31.8) mmol/L Albumin/Globulin Ratio 1.45 L (1.60-3.17) Ratio Microbiology - Last 24 Hours (Table) 03/23/23 08:30 Blood Culture - Preliminary Blood 03/23/23 08:47 Blood Culture Gram Stain - Preliminary Blood Assessment and Plan Assessment: 1. Left-sided neck pain 2. Recent cellulitis of the neck, treated as outpatient with oral Bactrim 3. Dehydration with acute kidney injury with elevated BUN and creatinine on presentation 4. Abnormal computed tomography scan of the head neck and chest, initially done looking for potential abscess, but revealed evidence of breast mass and brain metastases 5. Pancytopenia on presentation 6. History of ovarian cancer in 2016 7. Positive blood culture possible contamination patient is on vancomycin ID following repeat culture ordered DVT prophylaxis Lovenox. GI prophylaxis Protonix Infectious disease service is consulted Blood culture ordered Patient started on IV antibiotics Computed tomography scan ordered Oncology consultation requested Will follow closely
--- NOTE | 2023-03-26 10:11 | P.DS ---
Providers Date of admission: 03/23/23 11:42 Expected date of discharge: 03/26/23 Attending physician: Philippe Shi Consults: 03/23/23 11:41 Consult Physician Routine Consulting Provider: Luba Perez Consult Reason/Comments: sirs Do you want consulting provider notified?: Yes 03/23/23 14:14 Consult Physician Routine Consulting Provider: Luba Perez Consult Reason/Comments: cellulitis Do you want consulting provider notified?: Yes 03/23/23 17:00 Consult Physician Routine Consulting Provider: Vj Lopez Consult Reason/Comments: possible breast cancer Do you want consulting provider notified?: Yes Primary care physician: [facility] Course: Discharge diagnosis 1. Left-sided neck pain 2. Recent cellulitis of the neck, treated as outpatient with oral Bactrim 3. Dehydration with acute kidney injury with elevated BUN and creatinine on presentation 4. Abnormal computed tomography scan of the head neck and chest, initially done looking for potential abscess, but revealed evidence of breast mass and brain metastases 5. Pancytopenia on presentation 6. History of ovarian cancer in 2016 7. Positive blood culture possible contamination patient is on vancomycin ID following repeat culture ordered Hospital course Xochilt Merida, is a 67 year-old female who presented to [facility] ER with a chief complaints of left neck pain. Patient reports the pain started significantly over the past 2 days on her left-sided neck and is sensitive to touch. Patient reports she has been having issues with cellulitis on multiple parts of her body was treated outpatient. Patient reports started on her legs and her chest wall she was concerned that he could be on her neck but no signs of rash noted. Patient has a past medical history of ovarian cancer in 2016. Patient denies any other recent illness this is the cellulitis. Patient denies weight loss or decreased appetite. At this time patient will be admitted. Infectious disease service is consulted. Patient was started on IV antibiotics vital signs reveal temp 98.6, heart rate 79, respiratory rate 17, blood pressure 130/78 with a pulse ox 98% on room air. On 03/24/2023 patient is alert and oriented 3. Patient reports improvement with neck pain remains on IV antibiotics Kefzol. Computed tomography scan com pleted showing concerns of masslike density in the right breast with skin thickening suspicious for malignancy is also right axillary adenopathy measuring up to 2.6 cm with an additional enlarged lymph nodes. Head CT completed showing right frontal lesion measuring 1.8 cm with surrounding vasogenic edema could reflect a metastatic lesion. Oncology services have been consulted and results to be reviewed and interpreted per oncology On 03/25/2023 patient is alert and oriented 3. In-depth conversation held with patient and all questions answered. Awaiting repeat blood culture 90 re commendation. At this time patient denies chest pain or shortness of breath. Patient denies nausea vomiting or diarrhea. Patient denies any urinary burning or frequency On 03/26/2023 patient is alert and oriented 3. Discussed case with infectious disease. No need for antibiotics outpatient repeat blood cultures negative. Initial blood cultures likely contamination. Patient was evaluated by our oncology team concerns of breast mass and frontal lobe mass. Patient would like to follow-up with her oncology Dr. Bejarano. Per patient she has follow-up appointment on Monday and will get computed tomography scan results from billing to take to appointment. At this time patient is eager to be DC'd home. Patient denies chest pain or shortness of breath. Patient denies nausea vomiting or diarrhea. Patient denies any urinary burning or frequency. 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
== END 2023-03-26 12:45 | disposition home or self-care (01) | DRG 551 ==
LOC: EC 07:42 → 4SSUR 11:42
PROVIDERS: ADMIT Internal Medicine; ATTEND Internal Medicine
DX: M54.2 Cervicalgia (principal); G93.6 Cerebral edema; D61.818 Other pancytopenia; N17.9 Acute kidney failure, unspecified; L03.221 Cellulitis of neck; C79.31 Secondary malignant neoplasm of brain; Z11.52 Encounter for screening for COVID-19; Z28.310 Unvaccinated for COVID-19; E86.0 Dehydration; R59.0 Localized enlarged lymph nodes; N63.10 Unspecified lump in the right breast, unspecified quadrant; M25.512 Pain in left shoulder; Z85.43 Personal history of malignant neoplasm of ovary; Z92.21 Personal history of antineoplastic chemotherapy
CPT/HCPCS: 36415; 70450; 70490; 71250; 80048; 80053; 81001; 85025; 87040; 87636; 96361; 96374; 99285

== ENCOUNTER 2023-08-15 05:27 | Inpatient (IN) | payer MEDICARE ==
[2023-08-15] MEDS ORDERED: ONDANSETRON 4 MG/2 ML VIAL IVP PRN (06:18)
[2023-08-15] MEDS ORDERED: HYDROmorphone 1 MG/ML 1 ML SYRINGE IVP PRN (06:18)
[2023-08-15] MEDS ORDERED: NALOXONE 0.4 MG/ML 1 ML VIAL IV PRN (06:18)
--- NOTE | 2023-08-15 06:18 | ED ---
Recheck HPI - General Chief Complaint: Abdominal Pain Stated Complaint: Bowel discomfort- transfer from [place] Time Seen by Provider: 08/15/23 05:30 Source: patient, RN notes reviewed, old records reviewed Mode of arrival: ambulatory Limitations: no limitations - History of Present Illness Initial Comments: This is a 67-year-old female who transferred by private vehicle for evaluation regarding severe abdominal pain gastric outlet obstruction. Patient is excepted in transfer from other facility. Patient has severe abdominal pain here in the ER persistent nausea vomiting will admit for surgical evaluation patient does have history of ovarian surgery from ovarian cancer MD Complaint: other (Gastric outlet obstruction questionable) -: days(s) Returns Today for: persistent/worsening pain related to initial visit Context: called for abnormal lab result Associated Symptoms: nausea, abdominal pain Treatments Prior to Arrival: Given Pain Meds on - Related Data Previous Rx's Medication Instructions Recorded Pantoprazole [Protonix] 40 mg PO DAILY 30 Days #30 tab 08/18/23 Allergies Allergy/AdvReac Type Severity Reaction Status Date / Time cat dander Allergy eye Verified 08/15/23 08:35 swelling & itching poison chris extract Allergy Rash/Hives Verified 08/15/23 08:35 Review of Systems ROS Statement: Those systems with pertinent positive or pertinent negative responses have been documented in the HPI. ROS Other: All systems not noted in ROS Statement are negative. Past Medical History Past Medical History: Cancer Additional Past Medical History / Comment(s): Cellulitis legs, Ovarian CA-not treating History of Any Multi-Drug Resistant Organisms: None Reported Past Surgical History: No Surgical Hx Reported Additional Past Surgical History / Comment(s): 2016 tumor removed Past Psychological History: No Psychological Hx Reported Smoking Status: Never smoker Past Alcohol Use History: None Reported Past Drug Use History: None Reported - Past Family History Father Family Medical History: No Reported History General Exam Limitations: no limitations General appearance: alert, in no apparent distress Head exam: Present: atraumatic, normocephalic, normal inspection Eye exam: Present: normal appearance, PERRL, EOMI. Absent: scleral icterus, conjunctival injection, periorbital swelling ENT exam: Present: normal exam, mucous membranes moist Neck exam: Present: normal inspection. Absent: tenderness, meningismus, lymphadenopathy Respiratory exam: Present: normal lung sounds bilaterally. Absent: respiratory distress, wheezes, rales, rhonchi, stridor Cardiovascular Exam: Present: regular rate, normal rhythm, normal heart sounds. Absent: systolic murmur, diastolic murmur, rubs, gallop, clicks GI/Abdominal exam: Present: soft, normal bowel sounds. Absent: distended, tenderness, guarding, rebound, rigid Extremities exam: Present: normal inspection, full ROM, normal capillary refill. Absent: tenderness, pedal edema, joint swelling, calf tenderness Back exam: Present: normal inspection Neurological exam: Present: alert, oriented X3, CN II-XII intact Psychiatric exam: Present: normal affect, normal mood Skin exam: Present: warm, dry, intact, normal color. Absent: rash Course Vital Signs 08/15/23 08/15/23 08/15/23 05:55 13:00 17:00 Temperature 98.6 F 98.1 F Pulse Rate 75 71 85 Respiratory 18 18 Rate Blood Pressure 146/82 126/86 130/80 O2 Sat by Pulse 99 100 Oximetry 08/15/23 08/16/23 08/16/23 21:24 00:00 06:00 Temperature Pulse Rate 74 67 66 Respiratory 18 18 18 Rate Blood Pressure 138/87 118/70 142/76 O2 Sat by Pulse 100 97 99 Oximetry - Reevaluation(s) Reevaluation #1: 08/15/23 06:16 Medical records reviewed Reevaluation #2: 08/15/23 06:16 Patient symptoms unchanged Reevaluation #3: 08/15/23 06:16 Patient informed of results questions answered Reevaluation #4: Was pt. sent in by a medical professional or institution (, PA, ORDER ENTRY SPECIALIST, urgent care, hospital, or alf...) When possible be specific @ -no Did you speak to anyone other than the patient for history (EMS, parent, family, police, friend...)? What history was obtained from this source @ -no Did you review nursing and triage notes (agree or disagree)? Why? @ -agree Are old charts reviewed (outside hosp., previous admission, EMS record, old EKG, old radiological studies, urgent care reports/EKG's, alf records)? Report findings @ -yes Differential Diagnosis (chest pain, altered mental status, abdominal pain women, abdominal pain men, vaginal bleeding, weakness, fever, dyspnea, syncope, headache, dizziness, GI bleed, back pain, seizure, CVA, palpatations, mental health, musculoskeletal)? @ -prior EKG interpreted by me (3pts min.). @ -yes X-rays interpreted by me (1pt min.). @ -no CT interpreted by me (1pt min.). @ -no U/S interpreted by me (1pt. min.). @ -no What testing was considered but not performed or refused? (CT, X-rays, U/S, labs)? Why? @ -none What meds were considered but not given or refused? Why? @ -none Did you discuss the management of the patient with other professionals (professionals i.e. Dr., PA, ORDER ENTRY SPECIALIST, lab, RT, psych nurse, manager social responsibility, marketing automation specialist, teacher, executive vice president and chief financial officer, resource manager)? Give summary @ -no Was smoking cessation discussed for >3mins.? @ -no Was critical care preformed (if so, how long)? @ -no Were there social determinants of health that impacted care today? How? (Homelessness, low income, unemployed, alcoholism, drug addiction, transportation, low edu. Level, literacy, decrease access to med. care, m[facility], rehab)? @ -none Was there de-escalation of care discussed even if they declined (Discuss DNR or withdrawal of care, Hospice)? DNR status @ -no What co-morbidities impacted this encounter? (DM, HTN, Smoking, COPD, CAD, Cancer, CVA, ARF, Chemo, Hep., AIDS, mental health diagnosis, sleep apnea, morbid obesity)? @ -none Was patient admitted / discharged? Hospital course, mention meds given and route, prescriptions, significant lab abnormalities, going to OR and other pertinent info. @ - 67 female to the ER for evaluation abdominal pain severe with gastric out obstruction will admit for surgical evaluation Admitted Undiagnosed new problem with uncertain prognosis? @ -no Drug Therapy requiring intensive monitoring for toxicity (Heparin, Nitro, Insulin, Cardizem)? @ -no Were any procedures done? @ -no Diagnosis/symptom? @ -Gastric outlet obstruction, abdominal pain Acute, or Chronic, or Acute on Chronic? @ -Acute Uncomplicated (without systemic symptoms) or Complicated (systemic symptoms)? @ -Complicated Side effects of treatment? @ -no Exacerbation, Progression, or Severe Exacerbation? @ -exacerbation Poses a threat to life or bodily function? How? (Chest pain, USA, ME, pneumonia, PE, COPD, DKA, ARF, appy, cholecystitis, CVA, Diverticulitis, Homicidal, Suicidal, threat to staff... and all critical care pts) @ -yes Reevaluation #5: Differential Abdominal Pain Women: Appendicitis, Cholecystitis, diverticulosis, ischemic bowel, pancreatitis, hepatitis, UTI, gastroenteritis, AAA, incarcerated hernia, bowel obstruction, constipation, inflammatory bowel, hepatitis, peptic ulcer disease, splenic inf arction, perforated viscus, vulvitis, ovarian torsion, PID, kidney stone, placenta abruption, this is not meant to be an all-inclusive list - Consultations Consultation #1: Spoke with E Dr. Shi who agrees to admit this patient Medical Decision Making - Medical Decision Making 67 female to the ER for evaluation abdominal pain severe with gastric out obstruction will admit for surgical evaluation - Lab Data Result diagrams: 08/16/23 09:28 08/16/23 09:28 Disposition Clinical Impression: Abdominal pain Disposition: ADMITTED IP TO THIS [facility] Condition: Stable Is patient prescribed a controlled substance at d/c from ED?: No Time of Disposition: 06:10
[2023-08-15] MEDS: ONDANSETRON 4 MG/2 ML VIAL IVP STA (07:53)
[2023-08-15] MEDS: MORPHINE SULFATE 4 MG/ML SYRINGE IV STA (07:53)
[2023-08-15] MEDS: SODIUM CHLORIDE 0.9% 1,000 ML IV STA ×2 (07:55→08:01)
[2023-08-15] MEDS: SODIUM CHLORIDE 0.9% 1,000 ML IV SCH (08:02)
[2023-08-15 08:04] LABS: Basophils % (A) 0 %; Eosinophils # (A) 0.1 k/uL (0-0.7); Eosinophils % (A) 2 %; HCT 34.9 % (34.0-46.0); HGB 11.5 gm/dL (11.4-16.0); Lymphocytes % (A) 20 %; MCH 31.8 pg (25.0-35.0); MCHC 32.9 g/dL (31.0-37.0); MCV 96.5 fL (80.0-100.0); Mean Platelet Volume 7.2; Monocytes # (A) 0.3 k/uL (0-1.0); Monocytes % (A) 6 %; Neutrophils # (A) 3.5 k/uL (1.3-7.7); Neutrophils % (A) 70 %; Platelet Count 240 k/uL (150-450); RBC 3.62 m/uL (3.80-5.40); RDW 12.1 % (11.5-15.5); WBC 5.1 k/uL (3.8-10.6)
[2023-08-15] MEDS: PANTOPRAZOLE 40 MG/10 ML VIAL IV SCH (08:05)
[2023-08-15 08:12] LABS: ALT 412 U/L (4-34); AST 495 U/L (14-36); African American GFR (CKD) 48 (>60 ml/min/1.73 sqM); Albumin 3.4 g/dL (3.5-5.0); Alkaline Phosphatase 226 U/L (38-126); Anion Gap 7 mmol/L; Blood Urea Nitrogen 21 mg/dL (7-17); Calcium 9.1 mg/dL (8.4-10.2); Carbon Dioxide 23 mmol/L (22-30); Chloride 109 mmol/L (98-107); Glucose 107 mg/dL (74-99); Lipase 331 U/L (23-300); Magnesium 1.9 mg/dL (1.6-2.3); Non-African American GFR(CKD) 41 (>60 ml/min/1.73 sqM); Phosphorus 3.4 mg/dL (2.5-4.5); Potassium 4.1 mmol/L (3.5-5.1); Sodium 139 mmol/L (137-145); Total Bilirubin 1.1 mg/dL (0.2-1.3); Total Protein 6.4 g/dL (6.3-8.2)
[2023-08-15 08:21] LABS: NT-Pro-B-Type Natriuretic Pept 353 pg/mL
[2023-08-15 09:04] LABS: Partial Thromboplastin Time 19.9 sec (22.0-30.0)
--- NOTE | 2023-08-15 10:42 | P.GSCN ---
History of Present Illness Consult date: 08/15/23 History of present illness: CHIEF COMPLAINT: Abdominal pain HISTORY OF PRESENT ILLNESS: This is a 67-year-old female who was a transfer from [facility]. She presented with severe abdominal pain x 2 weeks. Patient describes the pain as a burning sensation in the upper abdomen. She did have vomiting. She also reports that her stomach gets hard and firm. She was a transfer because there were concerns for small bowel obstruction and gastric outlet obstruction. Patient does have a history of ovarian cancer with resection of the tumor in 2016. PAST MEDICAL HISTORY: See list. PAST SURGICAL HISTORY: See list. MEDICATIONS: See list. ALLERGIES: See list. SOCIAL HISTORY: No illicit drug use. REVIEW OF SYSTEMS: CONSTITUTIONAL: Denies fever or chills. HEENT: Denies blurred vision, vision changes, or eye pain. Denies hemoptysis ENDOCRINE: Denies heat or cold intolerance. CARDIOVASCULAR: Denies chest pain or pressure. RESPIRATORY: No shortness of breath. GASTROINTESTINAL: Please refer to HPI otherwise unremarkable. NEURO: Denies history of seizures. PSYCH: No depression or suicidal ideation HEMATOLOGIC: Denies bleeding disorders. LYMPHATIC: The patient denies any lumps and bumps around the neck. GENITOURINARY: Denies any blood in urine or increased urinary frequency. MUSCULOSKELETAL: Denies myalgias. Denies joint swelling. Denies decreased range of motion beyond patients baseline. SKIN: Denies pruitis. Denies rash. PHYSICAL EXAM: VITAL SIGNS: Reviewed GENERAL: Well-developed in no acute distress. HEENT: No sclera icterus. Extraocular movements grossly intact. Moist buccal mucosa. Head is atraumatic, normocephalic. Hears conversational speech. No nasal drainage. NECK: Supple without lymphadenopathy. CHEST: Non-labored respirations and equal bilateral excursions. CARDIOVASCULAR: Palpable 2+ radial pulses. ABDOMEN: Soft. Nondistended. Nontender MUSCULOSKELETAL: No clubbing or cyanosis. NEUROLOGIC: No focal or lateralizing signs. Cranial nerves II through XII grossly intact. PSYCH: Appropriate affect. Alert and oriented to person, place and time. SKIN: Well perfused. Good skin turgor. LABORATORY DATA: WBC 5.1 Hgb 11.5 platelets 240 Symptoms 139 potassium 4.1 creatinine 1.32 Total bili 1.1 AST 495 ALT 412 alk phos 226 Lipase 331 Lactic acid 0.7 IMAGING: ASSESSMENT: 1. Abdominal pain 2. Possible small bowel obstruction and concerns for possible gastric outlet obstruction 3. Elevated LFTs 4. History of ovarian cancer with surgical resection of ovarian tumor in 2016 PLAN: -Small bowel follow-through with Gastrografin ordered for evaluation of small bowel obstruction or possible gastric outlet obstruction -Keep patient n.p.o. -Continue IV fluids -Continue supportive care Physician Communications Manager note has been reviewed by physician. Signing provider agrees with the documented findings, assessment, and plan of care. Past Medical History Past Medical History: Cancer Additional Past Medical History / Comment(s): Cellulitis legs, Ovarian CA-not treating History of Any Multi-Drug Resistant Organisms: None Reported Past Surgical History: No Surgical Hx Reported Additional Past Surgical History / Comment(s): 2016 tumor removed Past Psychological History: No Psychological Hx Reported Smoking Status: Never smoker Past Alcohol Use History: None Reported Past Drug Use History: None Reported - Past Family History Father Family Medical History: No Reported History Medications and Allergies Home Medications Medication Instructions Recorded Confirmed Type No Known Home Medications 08/15/23 08/15/23 History Allergies Allergy/AdvReac Type Severity Reaction Status Date / Time cat dander Allergy eye Verified 08/15/23 08:35 swelling & itching poison chris extract Allergy Rash/Hives Verified 08/15/23 08:35 Surgical - Exam Vital Signs Temp Pulse Resp BP Pulse Ox 98.6 F 75 18 146/82 99 08/15/23 05:55 08/15/23 05:55 08/15/23 05:55 08/15/23 05:55 08/15/23 05:55 Results - Labs 08/15/23 07:52 08/15/23 07:52 Abnormal Lab Results - Last 24 Hours (Table) 08/15/23 08/15/23 08/15/23 Range/Units 07:52 07:52 07:52 RBC 3.62 L (3.80-5.40) m/uL APTT 19.9 L (22.0-30.0) sec Chloride 109 H (98-107) mmol/L BUN 21 H (7-17) mg/dL Creatinine 1.32 H (0.52-1.04) mg/dL Glucose 107 H (74-99) mg/dL AST 495 H (14-36) U/L ALT 412 H (4-34) U/L Alkaline Phosphatase 226 H (38-126) U/L Albumin 3.4 L (3.5-5.0) g/dL Lipase 331 H (23-300) U/L Diabetes panel 08/15/23 Range/Units 07:52 Sodium 139 (137-145) mmol/L Potassium 4.1 (3.5-5.1) mmol/L Chloride 109 H (98-107) mmol/L Carbon Dioxide 23 (22-30) mmol/L BUN 21 H (7-17) mg/dL Creatinine 1.32 H (0.52-1.04) mg/dL Glucose 107 H (74-99) mg/dL Calcium 9.1 (8.4-10.2) mg/dL AST 495 H (14-36) U/L ALT 412 H (4-34) U/L Alkaline Phosphatase 226 H (38-126) U/L Total Protein 6.4 (6.3-8.2) g/dL Albumin 3.4 L (3.5-5.0) g/dL Calcium panel 08/15/23 Range/Units 07:52 Calcium 9.1 (8.4-10.2) mg/dL Phosphorus 3.4 (2.5-4.5) mg/dL Albumin 3.4 L (3.5-5.0) g/dL Pituitary panel 08/15/23 Range/Units 07:52 Sodium 139 (137-145) mmol/L Potassium 4.1 (3.5-5.1) mmol/L Chloride 109 H (98-107) mmol/L Carbon Dioxide 23 (22-30) mmol/L BUN 21 H (7-17) mg/dL Creatinine 1.32 H (0.52-1.04) mg/dL Glucose 107 H (74-99) mg/dL Calcium 9.1 (8.4-10.2) mg/dL Adrenal panel 08/15/23 Range/Units 07:52 Sodium 139 (137-145) mmol/L Potassium 4.1 (3.5-5.1) mmol/L Chloride 109 H (98-107) mmol/L Carbon Dioxide 23 (22-30) mmol/L BUN 21 H (7-17) mg/dL Creatinine 1.32 H (0.52-1.04) mg/dL Glucose 107 H (74-99) mg/dL Calcium 9.1 (8.4-10.2) mg/dL Total Bilirubin 1.1 (0.2-1.3) mg/dL AST 495 H (14-36) U/L ALT 412 H (4-34) U/L Alkaline Phosphatase 226 H (38-126) U/L Total Protein 6.4 (6.3-8.2) g/dL Albumin 3.4 L (3.5-5.0) g/dL
--- NOTE | 2023-08-15 10:43 | P.HPIM ---
History of Present Illness H&P Date: 08/15/23 this is a 67-year-old female patient of Dr. Levine who was a transfer from [place] due to concerns of gastric outlet obstruction. Patient has a past medical history of ovarian cancer with reoccurrence and brain metastases in which she received gamma treatment in March. Patient reports that she was also started taking on chemotherapy at that time but was unable to tolerate and stopped taking them. Patient was falling out of [place]. Reports that after she stopped taking chemotherapy started seeing a director summer sessions and has been taking supplements since. Patient reports that every night she becomes increasingly nauseous and throws up starting around 10 PM. Additional medical history inc ludes cellulitis.CT completed at [place] showing large right hydronephrosis and associated cortical thinning. Marked distended stomach and duodenum suggestive partial gastric obstruction and moderate ascites. labwork revealing AST 495, ALT 412 and alkaline phosphatase 226 lipase also elevated at 331. At this time patient will be admitted surgical services have been consulted. We'll also consult urology services for right hydronephrosis. Also consult oncology services given patient's history of metastatic ovarian cancer.current vital signs temp 98.6, heart rate 75, respiratory rate 18, blood pressure 146/82 with a pulse ox 99% on room air. She is currently resting comfortably in bed at bedside TO answer. Patient denies chest pain or shortness of breath. Patient denies any nausea vomiting or diarrhea at this time. Patient denies any urinary burning or frequency Review of Systems please refer to HPI otherwise unremarkable Past Medical History Past Medical History: Cancer Additional Past Medical History / Comment(s): Cellulitis legs, Ovarian CA-not treating History of Any Multi-Drug Resistant Organisms: None Reported Past Surgical History: No Surgical Hx Reported Additional Past Surgical History / Comment(s): 2016 tumor removed Past Psychological History: No Psychological Hx Reported Smoking Status: Never smoker Past Alcohol Use History: None Reported Past Drug Use History: None Reported - Past Family History Father Family Medical History: No Reported History Medications and Allergies Home Medications Medication Instructions Recorded Confirmed Type No Known Home Medications 08/15/23 08/15/23 History Allergies Allergy/AdvReac Type Severity Reaction Status Date / Time cat dander Allergy eye Verified 08/15/23 08:35 swelling & itching poison chris extract Allergy Rash/Hives Verified 08/15/23 08:35 Physical Exam Vitals: Vital Signs Temp Pulse Resp BP Pulse Ox 08/15/23 05:55 98.6 F 75 18 146/82 99 Intake and Output 08/14/23 08/15/23 08/15/23 22:59 06:59 14:59 Other: Weight 58.06 kg Head normocephalic Neck supple Lungs clear to auscultation bilaterally no wheezing or crackles Heart regular rate and rhythm S1-S2, no rub or gallop Abdomen is soft nontender nondistended positive bowel sounds no hepatosplenomegaly Extremities no edema Neuro alert and orientated to 3 Results CBC & Chem 7: 08/15/23 07:52 08/15/23 07:52 Labs: Abnormal Lab Results - Last 24 Hours (Table) 08/15/23 08/15/23 08/15/23 Range/Units 07:52 07:52 07:52 RBC 3.62 L (3.80-5.40) m/uL APTT 19.9 L (22.0-30.0) sec Chloride 109 H (98-107) mmol/L BUN 21 H (7-17) mg/dL Creatinine 1.32 H (0.52-1.04) mg/dL Glucose 107 H (74-99) mg/dL AST 495 H (14-36) U/L ALT 412 H (4-34) U/L Alkaline Phosphatase 226 H (38-126) U/L Albumin 3.4 L (3.5-5.0) g/dL Lipase 331 H (23-300) U/L Assessment and Plan Assessment: 1. increased nausea secondary to gastric outlet obstruction. CT completed at [place] 2. History of recurrent ovarian cancer with brain metastases. Patient reports that she received gamma treatment in March and was started on chemotherapy but could not tolerate it and treatment stopped. Patient was following out of [facility]. 3. Elevated liver enzymes 4. Acute kidney injury. Continue gentle hydration 5. Right hydronephrosis. Urology service is consulted 6. History of ovarian cancer in 2016 at this time patient will be admitted Surgical services, urology and oncology service is consulted Patient currently nothing by mouth DVT prophylaxis SCDs with anticipation of possible surgical intervention GI prophylaxis Protonix Repeat labs ordered for a.m. Time with Patient: Greater than 30 (Greater than 60% of the total time spent in counseling and coordination of care)
--- NOTE | 2023-08-15 12:54 | FL ---
EXAMINATION TYPE: FL small bowel follow through DATE OF EXAM: 08/15/2023 12:36 PM COMPARISON: 12/02/2015 INDICATION: Patient age:Female; 67 years old; Reason for study: abdominal pain; TECHNIQUE: The procedure was explained and patient history elicited. All patient questions were ans wered prior to start of procedure. A shipyard laborer radiograph of the abdomen was also reviewed. The patient was asked to ingest liquid Gastrografin and incremental frontal abdominal radiographs were then taken until contrast was visualized in the cecum. Fluoroscopic time:0 min Fluoroscopic images:0 Radiographs taken: 6 DAP: not reported [id number] FINDINGS: The shipyard laborer abdominal radiograph demonstrates a normal bowel gas pattern without dilated loops of small or large bowel. There is no evidence of organomegaly or pneumoperitoneum. No abnormal calcifications . The visualized osseous structures are intact. Contrast is seen extending from the duodenojejunal junction into the cecum after 1 hour, which is wit hin the expected time period. The small bowel follows normal distribution and contour without any ev idence of extraluminal or intraluminal irregularity. There is no displacement of bowel loops or extr aluminal extravasation of contrast material. Small bowel mucosal folds are felt to be within normal l imits. IMPRESSION: No evidence for gastric outlet obstruction, Normal detailed small bowel examination.
--- NOTE | 2023-08-15 19:27 | US ---
EXAMINATION TYPE: US gallbladder DATE OF EXAM: 08/15/2023 COMPARISON: NONE CLINICAL INDICATION: Female, 67 years old with history of elevated LFTs, abdominal pain; elevated lft s TECHNIQUE: Multiple sonographic images of the right upper quadrant are obtained. FINDINGS: EXAM MEASUREMENTS: Liver Length: 12.7 cm Gallbladder Wall: 0.1 cm CBD: 1.0 cm Right Kidney: 8.5 x 4.1 x 4.0 cm BROOM HANDLE DIPPER NOTES: Pancreas: Duct measuring 2mm Liver: wnl Gallbladder: wnl Evidence for sonographic Tubbs's sign: No CBD: Redemonstrated dilated common bile duct. Right Kidney: moderate hydro seen IMPRESSION: 1. Dilated common bile duct as seen on recent CT exam. 2. Redemonstrated moderate right hydronephrosis. 3. No significant liver abnormality.
[2023-08-16 10:05] LABS: Basophils % (A) 0 %; Eosinophils # (A) 0.2 k/uL (0-0.7); Eosinophils % (A) 3 %; HCT 37.4 % (34.0-46.0); Lymphocytes # (A) 1.1 k/uL (1.0-4.8); Lymphocytes % (A) 20 %; MCH 31.6 pg (25.0-35.0); MCHC 32.1 g/dL (31.0-37.0); MCV 98.7 fL (80.0-100.0); Monocytes # (A) 0.4 k/uL (0-1.0); Monocytes % (A) 7 %; Neutrophils # (A) 3.9 k/uL (1.3-7.7); Neutrophils % (A) 68 %; Platelet Count 257 k/uL (150-450); RBC 3.79 m/uL (3.80-5.40); RDW 12.4 % (11.5-15.5); WBC 5.7 k/uL (3.8-10.6)
[2023-08-16 10:31] LABS: ALT 329 U/L (4-34); AST 214 U/L (14-36); African American GFR (CKD) 47 (>60 ml/min/1.73 sqM); Albumin/Globulin Ratio 1.3; Alkaline Phosphatase 231 U/L (38-126); Anion Gap 12 mmol/L; Blood Urea Nitrogen 26 mg/dL (7-17); Carbon Dioxide 20 mmol/L (22-30); Chloride 114 mmol/L (98-107); Globulin 3.2 g/dL; Glucose 75 mg/dL (74-99); Lipase 183 U/L (23-300); Non-African American GFR(CKD) 41 (>60 ml/min/1.73 sqM); Potassium 4.1 mmol/L (3.5-5.1); Sodium 146 mmol/L (137-145); Total Bilirubin 0.8 mg/dL (0.2-1.3); Total Protein 7.2 g/dL (6.3-8.2)
--- NOTE | 2023-08-16 11:34 | P.PN ---
Subjective Progress Note Date: 08/16/23 this is a 67-year-old female patient of Dr. Levine who was a transfer from [place] due to concerns of gastric outlet obstruction. Patient has a past medical history of ovarian cancer with reoccurrence and brain metastases in which she received gamma treatment in March. Patient reports that she was also started taking on chemotherapy at that time but was unable to tolerate and stopped taking them. Patient was falling out of [place]. Reports that after she stopped taking chemotherapy started seeing a speech language pathologist assistant and has been taking supplements since. Patient reports that every night she becomes increasingly nauseous and throws up starting around 10 PM. Additional medical history includes cellulitis.CT completed at [place] showing large right hydronephrosis and associated cortical thinning. Marked distended stomach and duodenum suggestive partial gastric obstruction and moderate ascites. labwork revealing AST 495, ALT 412 and alkaline phosphatase 226 lipase also elevated at 331. At this time patient will be admitted surgical services have been consulted. We'll also consult urology services for right hydronephrosis. Also consult oncology services given patient's history of metastatic ovarian cancer.current vital signs temp 98.6, heart rate 75, respiratory rate 18, blood pressure 146/82 with a pulse ox 99% on room air. She is currently resting comfortably in bed at bedside TO answer. Patient denies chest pain or shortness of breath. Patient denies any nausea vomiting or diarrhea at this time. Patient denies any urinary burning or frequency On 08/16/2023 patient is alert and oriented 3.. patient currently sitting up in bed eating clear liquid breakfast. Patient denies any further episodes of nausea or vomiting. Neurology, surgical and oncology services have all been consulting awaiting further input. Diet has been advanced per surgical servic es. At this time patient denies chest pain or shortness of breath. Patient denies nausea vomiting or diarrhea. Patient denies any urinary burning or frequency. Current vital signs temp 98.0, heart rate 64, respiratory rate 16, blood pressure 131/64 with a pulse ox 100% on room air Objective - Vital Signs Vital signs: Vital Signs Temp 98.0 F 08/16/23 08:00 Pulse 64 08/16/23 08:00 Resp 16 08/16/23 08:00 BP 131/64 08/16/23 08:00 Pulse Ox 100 08/16/23 08:00 FiO2 - Exam Head normocephalic Neck supple Lungs clear to auscultation bilaterally no wheezing or crackles Heart regular rate and rhythm S1-S2, no rub or gallop Abdomen is soft nontender nondistended positive bowel sounds no hepatosplenomegaly Extremities no edema Neuro alert and orientated to 3 - Labs CBC & Chem 7: 08/16/23 09:28 08/16/23 09:28 Labs: Abnormal Lab Results - Last 24 Hours (Table) 08/16/23 08/16/23 Range/Units 09:28 09:28 RBC 3.79 L (3.80-5.40) m/uL Sodium 146 H (137-145) mmol/L Chloride 114 H (98-107) mmol/L Carbon Dioxide 20 L (22-30) mmol/L BUN 26 H (7-17) mg/dL Creatinine 1.33 H (0.52-1.04) mg/dL AST 214 H (14-36) U/L ALT 329 H (4-34) U/L Alkaline Phosphatase 231 H (38-126) U/L Assessment and Plan Assessment: 1. increased nausea secondary to gastric outlet obstruction. CT completed at [place] 2. History of recurrent ovarian cancer with brain metastases. Patient reports that she received gamma treatment in March and was started on chemotherapy but could not tolerate it and treatment stopped. Patient was following out of [facility]. 3. Elevated liver enzymes 4. Acute kidney injury. Continue gentle hydration 5. Right hydronephrosis. Urology service is consulted 6. History of ovarian cancer in 2016 at this time patient will be admitted Surgical services, urology and oncology service is consulted DVT prophylaxis SCDs with anticipation of possible surgical intervention GI prophylaxis Protonix Repeat labs ordered for a.m.
--- NOTE | 2023-08-16 13:49 | P.GSCN ---
History of Present Illness Consult date: 08/15/23 Reason for Consult: Right-sided hydronephrosis History of present illness: This is a 67-year-old female that was transferred from the [facility] with 2-week history of abdominal pain associated with the nausea and vomiting and abdominal distention, she was transferred over for general surgery evaluation. Urology is consulted for finding of right-sided hydronephrosis. Patient has a known history of ovarian cancer diagnosed back in 2015, indicates she developed recurrence back in 2021 and was started on chemotherapy. [place] CT scan showed evidence of right-sided hydronephrosis, with dilated ureter down to the mid ureter, on review of imaging no evidence of ureteral stone. There was evidence of some degree of atrophy on that side. She denies any flank pain, gross hematuria or any voiding difficulties. No previous known history of kidney stones recurrent UTIs or any previous urological surgeries. Her creatinine was 1.34 on presentation, her baseline is unknown. Review of Systems - Constitutional Denies fever, Denies weight loss - EENT Ears, nose, mouth and throat: Denies dysphagia - Cardiovascular Denies chest pain, Denies shortness of breath - Gastrointestinal Reports abdominal pain, Reports nausea, Reports vomiting - Genitourinary Genitourinary: Reports flank pain, Denies dysuria, Denies hematuria - Integumentary Denies rash, Denies unusual bruising - Neurological Denies headaches, Denies syncope Past Medical History Past Medical History: Cancer Additional Past Medical History / Comment(s): Cellulitis legs, Ovarian CA-not treating History of Any Multi-Drug Resistant Organisms: None Reported Past Surgical History: No Surgical Hx Reported Additional Past Surgical History / Comment(s): 2016 tumor removed Past Psychological History: No Psychological Hx Reported Smoking Status: Never smoker Past Alcohol Use History: None Reported Past Drug Use History: None Reported - Past Family History Father Family Medical History: No Reported History Medications and Allergies Home Medications Medication Instructions Recorded Confirmed Type No Known Home Medications 08/15/23 08/15/23 History Allergies Allergy/AdvReac Type Severity Reaction Status Date / Time cat dander Allergy eye Verified 08/15/23 08:35 swelling & itching poison chris extract Allergy Rash/Hives Verified 08/15/23 08:35 Surgical - Exam Vital Signs Temp Pulse Resp BP Pulse Ox 98.6 F 75 18 146/82 99 08/15/23 05:55 08/15/23 05:55 08/15/23 05:55 08/15/23 05:55 08/15/23 05:55 - General no distress, no pain - Eyes normal ocular movement, no pale - ENT normal nares, normal mucosa - Respiratory normal expansion, normal respiratory effort - Abdomen Abdomen: soft, non tender, distended - Psychiatric oriented to time, oriented to person, oriented to place Results - Labs 08/16/23 09:28 08/16/23 09:28 Abnormal Lab Results - Last 24 Hours (Table) 08/15/23 08/15/23 08/15/23 Range/Units 07:52 07:52 07:52 RBC 3.62 L (3.80-5.40) m/uL APTT 19.9 L (22.0-30.0) sec Chloride 109 H (98-107) mmol/L BUN 21 H (7-17) mg/dL Creatinine 1.32 H (0.52-1.04) mg/dL Glucose 107 H (74-99) mg/dL AST 495 H (14-36) U/L ALT 412 H (4-34) U/L Alkaline Phosphatase 226 H (38-126) U/L Albumin 3.4 L (3.5-5.0) g/dL Lipase 331 H (23-300) U/L Diabetes panel 08/15/23 Range/Units 07:52 Sodium 139 (137-145) mmol/L Potassium 4.1 (3.5-5.1) mmol/L Chloride 109 H (98-107) mmol/L Carbon Dioxide 23 (22-30) mmol/L BUN 21 H (7-17) mg/dL Creatinine 1.32 H (0.52-1.04) mg/dL Glucose 107 H (74-99) mg/dL Calcium 9.1 (8.4-10.2) mg/dL AST 495 H (14-36) U/L ALT 412 H (4-34) U/L Alkaline Phosphatase 226 H (38-126) U/L Total Protein 6.4 (6.3-8.2) g/dL Albumin 3.4 L (3.5-5.0) g/dL Calcium panel 08/15/23 Range/Units 07:52 Calcium 9.1 (8.4-10.2) mg/dL Phosphorus 3.4 (2.5-4.5) mg/dL Albumin 3.4 L (3.5-5.0) g/dL Pituitary panel 08/15/23 Range/Units 07:52 Sodium 139 (137-145) mmol/L Potassium 4.1 (3.5-5.1) mmol/L Chloride 109 H (98-107) mmol/L Carbon Dioxide 23 (22-30) mmol/L BUN 21 H (7-17) mg/dL Creatinine 1.32 H (0.52-1.04) mg/dL Glucose 107 H (74-99) mg/dL Calcium 9.1 (8.4-10.2) mg/dL Adrenal panel 08/15/23 Range/Units 07:52 Sodium 139 (137-145) mmol/L Potassium 4.1 (3.5-5.1) mmol/L Chloride 109 H (98-107) mmol/L Carbon Dioxide 23 (22-30) mmol/L BUN 21 H (7-17) mg/dL Creatinine 1.32 H (0.52-1.04) mg/dL Glucose 107 H (74-99) mg/dL Calcium 9.1 (8.4-10.2) mg/dL Total Bilirubin 1.1 (0.2-1.3) mg/dL AST 495 H (14-36) U/L ALT 412 H (4-34) U/L Alkaline Phosphatase 226 H (38-126) U/L Total Protein 6.4 (6.3-8.2) g/dL Albumin 3.4 L (3.5-5.0) g/dL - Imaging CT scan - abdomen: image reviewed (Right-sided hydronephrosis) Assessment and Plan Assessment: 67-year-old female presents to the hospital with abdominal pain, nausea vomiting ongoing for 2 weeks, been evaluated by general surgery. Also evidence of right-sided hydronephrosis. Her hydronephrosis not the cause of her abdominal pain, distention and nausea and vomiting. Cause of obstruction not clearly identified, but given history of ovarian cancer most likely due to extrinsic compression of the ureter versus ureteral stricture. Given the degree of hydr onephrosis, creatinine elevation and the evidence of renal atrophy she might benefit from a ureteral stent to preserve renal function on that side. -will schedule for Cystoscopy and right ureteral stent placement as an outpatient
--- NOTE | 2023-08-16 14:49 | P.PN ---
Subjective Progress Note Date: 08/16/23 CHIEF COMPLAINT: abdominal pain HISTORY OF PRESENT ILLNESS: Patient reports her abdominal pain has resolved. She has had multiple bowel movements after the small bowel follow-through with Gastrografin. She is having flatus. She reports being hungry and wants something to eat and drink. Small bowel follow-through reported as normal. No evidence of bowel obstruction and no evidence of gastric outlet obstruction. Patient afebrile. She did have a gallbladder ultrasound reported dilated common bile duct. Redemonstrated moderate right hydronephrosis. No significant liver abnormality. Gallbladder within normal limits. Patient being seen by urology. Afebrile. Liver enzymes trending downwards. Lipase normal at 183 PHYSICAL EXAM: VITAL SIGNS: Reviewed GENERAL: Well-developed in no acute distress. HEENT: No sclera icterus. Extraocular movements grossly intact. Moist buccal mucosa. Head is atraumatic, normocephalic. Hears conversational speech. No nasal drainage. NECK: Supple without lymphadenopathy. CHEST: Non-labored respirations and equal bilateral excursions. CARDIOVASCULAR: Palpable 2+ radial pulses. ABDOMEN: Soft. Nondistended. Nontender. MUSCULOSKELETAL: No clubbing or cyanosis. NEUROLOGIC: No focal or lateralizing signs. Cranial nerves II through XII grossly intact. PSYCH: Appropriate affect. Alert and oriented to person, place and time. SKIN: Well perfused. Good skin turgor. ASSESSMENT: 1. Abdominal pain resolved. No evidence of small bowel obstruction or gastric outlet obstruction on small bowel follow-through 2. Elevated liver enzymes PLAN: -Start a full liquid diet -Repeat LFTs in a.m. -Consult GI service regarding elevated LFTs and dilated common bile duct on ultrasound. Possible choledocholithiasis Physician Engraving Operator note has been reviewed by physician. Signing provider agrees with the documented findings, assessment, and plan of care. Objective - Vital Signs Vital signs: Vital Signs Temp 97.8 F 08/16/23 13:31 Pulse 76 08/16/23 13:31 Resp 17 08/16/23 13:31 BP 147/85 08/16/23 13:31 Pulse Ox 100 08/16/23 13:31 FiO2 Intake & Output 08/15/23 08/16/23 08/16/23 18:59 06:59 18:59 Weight 58.06 kg - Labs CBC & Chem 7: 08/16/23 09:28 08/16/23 09:28 Labs: Abnormal Lab Results - Last 24 Hours (Table) 08/16/23 08/16/23 Range/Units 09:28 09:28 RBC 3.79 L (3.80-5.40) m/uL Sodium 146 H (137-145) mmol/L Chloride 114 H (98-107) mmol/L Carbon Dioxide 20 L (22-30) mmol/L BUN 26 H (7-17) mg/dL Creatinine 1.33 H (0.52-1.04) mg/dL AST 214 H (14-36) U/L ALT 329 H (4-34) U/L Alkaline Phosphatase 231 H (38-126) U/L
--- NOTE | 2023-08-16 18:01 | P.CONS ---
History of Present Illness - Reason for Consult Consult date: 08/16/23 met ovarian malignancy Requesting physician: Philippe Shi - Chief Complaint SBO - History of Present Illness Mrs. Merida is a 67-year-old female that we have been asked to see because of a history of ovarian cancer with brain mets. Patient follows with Dr. Joni Bejarano out of [facility] in [place]. Most recently in March 2023 she received gamma knife to 2 lesions in the brain, another small 1 was seen but, no plans for treatment of that right now. Patient was on chemotherapy, last dose was in March, this made her very ill so she opted to not do any further chemother apy. Current she is following with a MD panel maker. She believes the last time she saw was about 5 weeks ago. Patient came in with complaints of decreased intake, vomiting and epigastric burning, concerns for SBO. Since she has been here, she has had BM and reports today that she feels pretty good, she ate. Feeling tired. Past Medical History Past Medical History: Cancer Additional Past Medical History / Comment(s): Cellulitis legs, Ovarian CA-not treating History of Any Multi-Drug Resistant Organisms: None Reported Past Surgical History: No Surgical Hx Reported Additional Past Surgical History / Comment(s): 2016 tumor removed Past Psychological History: No Psychological Hx Reported Smoking Status: Never smoker Past Alcohol Use History: None Reported Past Drug Use History: None Reported - Past Family History Father Family Medical History: No Reported History Medications and Allergies Home Medications Medication Instructions Recorded Confirmed Type No Known Home Medications 08/15/23 08/15/23 History Allergies Allergy/AdvReac Type Severity Reaction Status Date / Time cat dander Allergy eye Verified 08/15/23 08:35 swelling & itching poison chris extract Allergy Rash/Hives Verified 08/15/23 08:35 Physical Exam Vitals: Vital Signs Temp Pulse Pulse Resp BP BP Pulse Ox 08/16/23 08:00 98.0 F 64 16 131/64 100 08/16/23 06:00 66 18 142/76 99 08/16/23 00:00 67 18 118/70 97 08/15/23 21:24 74 18 138/87 100 08/15/23 17:00 98.1 F 85 18 130/80 100 08/15/23 13:00 71 126/86 Results CBC & Chem 7: 08/16/23 09:28 08/16/23 09:28 Labs: Abnormal Lab Results - Last 24 Hours (Table) 08/16/23 Range/Units 09:28 RBC 3.79 L (3.80-5.40) m/uL Assessment and Plan (1) Ovarian carcinoma Current Visit: Yes Status: Chronic Priority: High Code(s): C56.9 - MALIGNANT NEOPLASM OF UNSPECIFIED OVARY SNOMED Code(s): 040855944 Plan: Medistatic ovarian carcinoma -Treatment at [facility] in [place] -Metastatic disease to brain diagnosed late last year -Most recent treatment was Gamma knife to 2 lesions in the brain -Patient did have single agent carboplatin, last time 04/28/23. She reports that it made her feel too ill so this was discontinued. -She is currently following with a Floor Representative. She will return to them for f urther treatment instructions on DC -Nothing further from an Oncology standpoint. N,V -Lipase was elevated at 331 on admit, it is within normal limits today. -Ultrasound of the gallbladder shows dilated common bile duct as seen on recent CT, moderate right hydronephrosis, no significant liver abnormality. Small bowel x-ray reports no evidence for gastric outlet obstruction, normal small bowel examination. Surgery consulted -Patient is reporting significant improvement in her symptoms Hydronephrosis -She has some mild renal dysfunction. To some degree likely from nausea, vomiting, decreased intake -Urology consulted. Doctor attests: I performed a history and physical examination of this patient, developed impression and plan of care. Discussed with dictator. I agree with dictators note, documented as a scribe.
--- NOTE | 2023-08-16 20:26 | P.PN ---
Subjective No acute overnight event, creat stable at 1.3 Objective - Vital Signs Vital signs: Vital Signs Temp 97.8 F 08/16/23 13:31 Pulse 76 08/16/23 13:31 Resp 17 08/16/23 13:31 BP 147/85 08/16/23 13:31 Pulse Ox 100 08/16/23 13:31 FiO2 Intake & Output 08/16/23 08/16/23 08/17/23 06:59 18:59 06:59 Weight 58.06 kg Other: # Voids 5 - Labs CBC & Chem 7: 08/16/23 09:28 08/16/23 09:28 Labs: Abnormal Lab Results - Last 24 Hours (Table) 08/16/23 08/16/23 Range/Units 09:28 09:28 RBC 3.79 L (3.80-5.40) m/uL Sodium 146 H (137-145) mmol/L Chloride 114 H (98-107) mmol/L Carbon Dioxide 20 L (22-30) mmol/L BUN 26 H (7-17) mg/dL Creatinine 1.33 H (0.52-1.04) mg/dL AST 214 H (14-36) U/L ALT 329 H (4-34) U/L Alkaline Phosphatase 231 H (38-126) U/L Assessment and Plan Assessment: 67-year-old female presents to the hospital with abdominal pain, nausea vomiting ongoing for 2 weeks, been evaluated by general surgery. Also evidence of right- sided hydronephrosis. Her hydronephrosis not the cause of her abdominal pain, distention and nausea and vomiting. Cause of obstruction not clearly identified, but given history of ovarian cancer most likely due to extrinsic compression of the ureter versus ureteral stricture. Given the degree of hydronephrosis, creatinine elevation and the evidence of renal atrophy she might benefit from a ureteral stent to preserve renal function on that side. -will schedule for Cystoscopy and right ureteral stent placement as an outpatient, will tenatively amrita for september 06
[2023-08-17] MEDS ORDERED: LIDOCAINE 1% INJ 10MG/ML (20 ML MDV) ONE (07:25)
[2023-08-17] MEDS ORDERED: PROPOFOL 10 MG/ML 20 ML VIAL IV ONE (07:25)
[2023-08-17] MEDS: IV FLUID CONTINUATION 1,000 ML IV ONE (07:26)
--- NOTE | 2023-08-17 10:00 | P.PN ---
Subjective Progress Note Date: 08/17/23 No acute overnight event, creat stable at 1.3 yesterday. Denies any flank pain, gross hematuria or dysuria Objective - Vital Signs Vital signs: Vital Signs Temp 97.8 F 08/17/23 07:48 Pulse 79 08/17/23 07:48 Resp 16 08/17/23 07:48 BP 118/80 08/17/23 07:48 Pulse Ox 99 08/17/23 07:48 FiO2 Intake & Output 08/16/23 08/17/23 08/17/23 18:59 06:59 18:59 Intake Total 200 Balance 200 Weight 58.06 kg Intake: IV 200 Other: # Voids 5 2 - Constitutional General appearance: Present: no acute distress - Labs CBC & Chem 7: 08/16/23 09:28 08/16/23 09:28 Labs: Abnormal Lab Results - Last 24 Hours (Table) 08/16/23 08/16/23 Range/Units 09:28 09:28 RBC 3.79 L (3.80-5.40) m/uL Sodium 146 H (137-145) mmol/L Chloride 114 H (98-107) mmol/L Carbon Dioxide 20 L (22-30) mmol/L BUN 26 H (7-17) mg/dL Creatinine 1.33 H (0.52-1.04) mg/dL AST 214 H (14-36) U/L ALT 329 H (4-34) U/L Alkaline Phosphatase 231 H (38-126) U/L Assessment and Plan Assessment: 67-year-old female presents to the hospital with abdominal pain, nausea vomiting ongoing for 2 weeks, been evaluated by general surgery. Also evidence of right- sided hydronephrosis. Her hydronephrosis not the cause of her abdominal pain, distention and nausea and vomiting. Cause of obstruction not clearly identified, but given history of ovarian cancer most likely due to extrinsic compression of the ureter versus ureteral stricture. Given the degree of hydronephrosis, creatinine elevation and the evidence of renal atrophy she might benefit from a ureteral stent to preserve renal function on that side. -will schedule for Cystoscopy and right ureteral stent placement as an outpatient, she is tenatively amrita for september 06
[2023-08-17 11:25] VITALS: BMI 23.3
--- NOTE | 2023-08-17 16:42 | P.CONS ---
History of Present Illness - Reason for Consult Consult date: 08/17/23 Elevated LFTs, dilated CBD on ultrasound Requesting physician: Tori Low - Chief Complaint Abdominal pain, nausea and vomiting - History of Present Illness This is a very pleasant 67-year-old female who presented to the emergency department with having chronic abdominal pain with nausea and vomiting. She states most of this occurs at nighttime around 10:00. States that when she lays down to go to bed she will have a burning sensation in her epigastric region and chest and then it continues upper chest until she vomits. She has a history of ovarian cancer with metastasis to the brain. Patient had been on chemotherapy last dose was in March. This was cut short due to abdominal pain and nausea and vomiting. She currently now follows with a medical administrative assistant and has been put on multiple vitamins. She states when she was taking her vitamins she believes that this may have been causing her GI problems. She stopped taking them and symptoms did improve. She restarted and they recurred. She was initially seen at [facility] and transferred here for concerns of distended stomach and duodenum that reported possible partial gastric outlet obstruction versus small bowel obstruction. She was transferred here and general surgery was consulted. She had a small bowel x-ray that was normal with no evidence of gastric outlet obstruction or small bowel obstruction. She had a gallbladder ultrasound as well to evaluate for elevated LFTs that reported mildly dilated common bile duct measuring 1.0 cm, redemonstrated moderate right hydronephrosis, no significant liver abnormality. Gallbladder is reported as normal. Today patient underwent upper endoscopy with Dr. Low which the patient states she was told it was normal. There is no report currently available. On admission total bilirubin 1.1 AST 495 ALT 412 alkaline phosphatase 226 She currently denies any abdominal or epigastric pain. States she was started on Protonix when she got here and she has had no further abdominal pain at that time. She also had stopped taking all of her vitamin supplements. She does report that one of her vitamins was a liver detoxifier. Labs WBC 5.7 hemoglobin 12.0 hematocrit 37 platelet count 257,000 INR 1.0 sodium 146 potassium 4.1 BUN 26 creatinine 1.3 total bilirubin 0.8 AST 214 ALT 329 alkaline phosphatase 231 Review of Systems REVIEW OF SYSTEMS: CARDIOPULMONARY: No chest pain or shortness of breath. Gastrointestinal: Burning sensation in epigastric region, no associated abdominal pain. Nausea and vomiting, which occurred at night. No hematemesis, coffee-ground emesis. No rectal bleeding, or melena. GENITOURINARY: No dysuria or hematuria. MUSCULOSKELETAL: Reports normal range of motion., Joint pain. SKIN: No rashes. No jaundice. ENDOCRINE: No chills, fevers. No excessive weight gain or loss. No polydipsia or polyuria. PSYCHIATRIC: Unremarkable. NEUROLOGY: No change in mental status. Denies dizziness, headache. ENT: Vision unremarkable. CONSTITUTIONAL: No recent weight loss. No fever, chills, night sweats. Past Medical History Past Medical History: Cancer Additional Past Medical History / Comment(s): Cellulitis legs, Ovarian CA-not treating History of Any Multi-Drug Resistant Organisms: None Reported Past Surgical History: No Surgical Hx Reported Additional Past Surgical History / Comment(s): 2016 tumor removed Past Psychological History: No Psychological Hx Reported Smoking Status: Never smoker Past Alcohol Use History: None Reported Past Drug Use History: None Reported - Past Family History Father Family Medical History: No Reported History Medications and Allergies Home Medications Medication Instructions Recorded Confirmed Type No Known Home Medications 08/15/23 08/15/23 History Allergies Allergy/AdvReac Type Severity Reaction Status Date / Time cat dander Allergy eye Verified 08/15/23 08:35 swelling & itching poison chris extract Allergy Rash/Hives Verified 08/15/23 08:35 Physical Exam Vitals: Vital Signs Temp Pulse Resp BP Pulse Ox 08/17/23 07:48 97.8 F 79 16 118/80 99 08/17/23 00:12 98.1 F 83 16 124/69 98 08/16/23 19:16 98.0 F 69 15 149/84 100 08/16/23 13:31 97.8 F 76 17 147/85 100 Intake and Output 08/16/23 08/17/23 08/17/23 22:59 06:59 14:59 Intake Total 200 Balance 200 Intake: IV 200 Other: # Voids 5 2 General appearance: The patient is alert, oriented, appears in no acute distress. HET: Head is normocephalic and atraumatic. Conjunctiva pink. Sclera anicteric. Neck: Supple without lymphadenopathy. Trachea midline. Heart: Regular. Lungs: Equal expansion, normal respiratory effort. Abdomen: Soft, nontender, nondistended. Skin: No rashes. No jaundice. Extremities: Normal skin color and turgor. No pedal edema. Neurological: No focal deficits. Alert and oriented x3. Results CBC & Chem 7: 08/16/23 09:28 08/16/23 09:28 Labs: Abnormal Lab Results - Last 24 Hours (Table) 08/16/23 08/16/23 Range/Units 09:28 09:28 RBC 3.79 L (3.80-5.40) m/uL Sodium 146 H (137-145) mmol/L Chloride 114 H (98-107) mmol/L Carbon Dioxide 20 L (22-30) mmol/L BUN 26 H (7-17) mg/dL Creatinine 1.33 H (0.52-1.04) mg/dL AST 214 H (14-36) U/L ALT 329 H (4-34) U/L Alkaline Phosphatase 231 H (38-126) U/L Comments: Gallbladder ultrasound reported mildly dilated common bile duct measuring 1.0 cm, redemonstrated moderate right hydronephrosis, no significant liver abnormality. Gallbladder is reported as normal. Assessment and Plan (1) Elevated LFTs Narrative/Plan: 67-year-old female improved with metastatic ovarian cancer had presented with epigastric pain and burning associated with nausea and vomiting which had been occurring for several days. She had initially been seen at [facility] and was transferred here for concerns for gastric outlet obstruction. She underwent testing that was negative. However she was also noted to have elevated LFTs on admission both at [facility] and here. She had further evaluation with a gallbladder ultrasound that showed normal gallbladder but did show mildly dilated common bile duct at 1.0 cm. Initially at [facility] she did have mild elevation in her total bilirubin with LFTs as high as the 400s. LFTs have been trending down, abdominal pain is completely resolved. Patient was in significant amount of [id number]-ljwztqm supplements likely which were causing her symptoms and could also be causing medication induced elevation of liver enzymes. Patient has stopped taking them since right prior to coming into the hospital so approximately 3 to 4 days ago. No further workup indicated at this time. Will run a hepatitis panel and monitor LFTs closely. Current Visit: Yes Status: Acute Code(s): R79.89 - OTHER SPECIFIED ABNORMAL FINDINGS OF BLOOD CHEMISTRY SNOMED Code(s): 718908805 (2) Epigastric pain Narrative/Plan: Patient is status post upper endoscopy with general surgery. Findings currently not available for dictation. Current Visit: Yes Status: Acute Code(s): R10.13 - EPIGASTRIC PAIN SNOMED Code(s): 32314857 (3) Nausea and vomiting Narrative/Plan: Resolved Current Visit: Yes Status: Acute Code(s): R11.2 - NAUSEA WITH VOMITING, UNSPECIFIED SNOMED Code(s): 34916714 (4) Ovarian carcinoma Current Visit: Yes Status: Chronic Priority: High Code(s): C56.9 - MALIGNANT NEOPLASM OF UNSPECIFIED OVARY SNOMED Code(s): 988181977 (5) Brain mass Current Visit: No Status: Acute Code(s): G93.89 - OTHER SPECIFIED DISORDERS OF BRAIN SNOMED Code(s): 336363291 Plan: 1. Continue symptomatic and supportive care 2. Diet as tolerated 3. Repeat daily CMP 4. Hepatitis panel ordered 5. Recommend discontinuing mijh-vzr-ptioieg supplements LFTs may be medication induced 6. Patient is status post upper endoscopy, results unavailable for this dictation 7. Continue Protonix 40 mg daily 8. Patient may be cleared for discharge and further workup can be done as an outpatient Thank you for this consultation, we will continue to follow. Dr. Latasha Brennan I agree with the dictator's note, documented as a scribe by Nan Mustafa.
--- NOTE | 2023-08-17 17:18 | P.PCN ---
Date of Procedure: 08/17/23 Description of Procedure: PREOPERATIVE DIAGNOSIS: Gastric outlet obstruction History of small bowel obstruction Personal history ovarian cancer POSTOPERATIVE DIAGNOSIS: Gastric outlet obstruction History of small bowel obstruction Personal history ovarian cancer OPERATION: Esophagogastroduodenoscopy with biopsies along esophagus, antrum and duodenum SURGEON: Tori Low MD ANESTHESIA: MAC. INDICATIONS: The patient is a 67-year-old female who presents gastric outlet obstruction in the presence of personal history of ovarian cancer. Benefits and risks of the procedure were described. Informed consent was obtained. DESCRIPTION: The patient was brought into the endoscopy suite and laid in the left lateral decubitus position. An Olympus gastroscope was passed along the posterior oropharynx down to the distal esophagus where the squamocolumnar junction was encountered at 36 cm from the incisors. The stomach was entered and no bile reflux was found. Additional findings are listed below. Biopsies with cold forceps were obtained of the antrum. The first through third portion of the duod enum was examined. Retroflexion of the scope confirmed Hill grade 2 lower esophageal valve. The squamocolumnar junction demonstrated LA grade B erosive esophagitis. The stomach was desufflated. The patient tolerated the procedure well. FINDINGS: Squamocolumnar junction 36cm from the incisors. Diaphragmatic hiatus at 37 cm. Hiatal hernia, 1 cm Hill grade 3 lower esophageal valve. Biopsies obtained. LA grade B erosive esophagitis. Biopsies obtained. Biopsies obtained of the duodenum. Chronic gastritis with biopsies obtained. No gastric ulcers identified. RECOMMENDATIONS: 1. With pre-existing history of ovarian cancer, biopsies pending. 2. Diet as tolerated
--- NOTE | 2023-08-17 17:36 | P.PN ---
Subjective Progress Note Date: 08/17/23 this is a 67-year-old female patient of Dr. Levine who was a transfer from [facility] due to concerns of gastric outlet obstruction. Patient has a past medical history of ovarian cancer with reoccurrence and brain metastases in which she received gamma treatment in March. Patient reports that she was also started taking on chemotherapy at that time but was unable to tolerate and stopped taking them. Patient was falling out of [place]. Reports that after she stopped taking chemotherapy started seeing a corporate counselor and has been taking supplements since. Patient reports that every night she becomes increasingly nauseous and throws up starting around 10 PM. Additional medical history includ es cellulitis.CT completed at [facility] showing large right hydronephrosis and associated cortical thinning. Marked distended stomach and duodenum suggestive partial gastric obstruction and moderate ascites. labwork revealing AST 495, ALT 412 and alkaline phosphatase 226 lipase also elevated at 331. At this time patient will be admitted surgical services have been consulted. We'll also consult urology services for right hydronephrosis. Also consult oncology services given patient's history of metastatic ovarian cancer.current vital signs temp 98.6, heart rate 75, respiratory rate 18, blood pressure 146/82 with a pulse ox 99% on room air. She is currently resting comfortably in bed at bedside TO answer. Patient denies chest pain or shortness of breath. Patient denies any nausea vomiting or diarrhea at this time. Patient denies any urinary burning or frequency On 08/16/2023 patient is alert and oriented 3.. patient currently sitting up in bed eating clear liquid breakfast. Patient denies any further episodes of nausea or vomiting. Neurology, surgical and oncology services have all been consulting awaiting further input. Diet has been advanced per surgical serv ices. At this time patient denies chest pain or shortness of breath. Patient denies nausea vomiting or diarrhea. Patient denies any urinary burning or frequency. Current vital signs temp 98.0, heart rate 64, respiratory rate 16, blood pressure 131/64 with a pulse ox 100% on room air on 08/17/2023 patient was seen and examined on the medical she is alert and oriented 3 in no apparent distress, she is complaining of nausea otherwise she denies any complaints, there is no fever or chills no headache or dizziness no chest pain no shortness of breath no cough no nausea or vomiting no abdominal pain no diarrhea and no urinary symptoms. patient underwent an EGD today, she is being evaluated by oncology, general surgery, urology, and gastroenterology, will continue to follow closely. Objective - Vital Signs Vital signs: Vital Signs Temp 98.3 F 08/17/23 15:55 Pulse 80 08/17/23 15:55 Resp 14 08/17/23 15:55 BP 123/78 08/17/23 15:55 Pulse Ox 99 08/17/23 15:55 FiO2 Intake & Output 08/16/23 08/17/23 08/17/23 18:59 06:59 18:59 Intake Total 200 Balance 200 Weight 58.06 kg 58.06 kg Intake: IV 200 Other: Voiding Method Toilet # Voids 5 2 - Exam Head normocephalic Neck supple Lungs clear to auscultation bilaterally no wheezing or crackles Heart regular rate and rhythm S1-S2, no rub or gallop Abdomen is soft nontender nondistended positive bowel sounds no hepatosplenomegaly Extremities no edema Neuro alert and orientated to 3 - Labs CBC & Chem 7: 08/16/23 09:28 08/16/23 09:28 Assessment and Plan Assessment: 1. increased nausea secondary to gastric outlet obstruction. CT completed at [facility] 2. History of recurrent ovarian cancer with brain metastases. Patient reports that she received gamma treatment in March and was started on chemotherapy but could not tolerate it and treatment stopped. Patient was following out of [facility]. 3. Elevated liver enzymes 4. Acute kidney injury. Continue gentle hydration 5. Right hydronephrosis. Urology service is consulted 6. History of ovarian cancer in 2016 at this time patient will be admitted Surgical services, urology and oncology service is consulted Patient currently nothing by mouth DVT prophylaxis SCDs with anticipation of possible surgical intervention GI prophylaxis Protonix Repeat labs ordered for a.m.
[2023-08-18 02:56] VITALS: RESP 18
--- NOTE | 2023-08-18 07:00 | P.HPADDEND ---
H&P Addendum H&P Addendum Date: 08/17/23 Extended discussion performed with patient regarding initial presentation of gastric outlet obstruction including bowel obstruction and hydronephrosis with pre-existing history of intra-abdominal cancer. Recommend upper endoscopy with biopsies to identify cause of initial gastric outlet obstruction. Patient agreed with proceeding with upper endoscopy with biopsies.
--- NOTE | 2023-08-18 07:26 | P.PN ---
Subjective Progress Note Date: 08/18/23 Principal diagnosis: Elevated LFTs This is a very pleasant 67-year-old female who presented to the emergency department with having chronic abdominal pain with nausea and vomiting. She states most of this occurs at nighttime around 10:00. States that when she lays down to go to bed she will have a burning sensation in her epigastric region and chest and then it continues upper chest until she vomits. She has a history of ovarian cancer with metastasis to the brain. Patient had been on chemotherapy last dose was in March. This was cut short due to abdominal pain and nausea and vomiting. She currently now follows with a systems specialist and has been put on multiple vitamins. She states when she was taking her vitamins she believes that this may have been causing her GI problems. She stopped taking them and symptoms did improve. She restarted and they recurred. She was initially seen at [facility] and transferred here for concerns of distended stomach and duodenum that reported possible partial gastric outlet obstruction versus small bowel obstruction. She was transferred here and general surgery was consulted. She had a small bowel x-ray that was normal with no evidence of gastric outlet obstruction or small bowel obstruction. She had a gallbladder ultrasound as well to evaluate for elevated LFTs that reported mildly dilated common bile duct measuring 1.0 cm, redemonstrated moderate right hydronephrosis, no significant liver abnormality. Gallbladder is reported as normal. Today patient underwent upper endoscopy with Dr. Low which the patient states she was told it was normal. There is no report currently available. On admission total bilirubin 1.1 AST 495 ALT 412 alkaline phosphatase 226 She currently denies any abdominal or epigastric pain. States she was started on Protonix when she got here and she has had no further abdominal pain at that time. She also had stopped taking all of her vitamin supplements. She does report that one of her vitamins was a liver detoxifier. 08/18/2023 Patient seen and examined today as a follow-up. She is up and dressed in her room. She is ambulating. She denies any abdominal pain, nausea or vomiting. States she is waiting to be discharged. Labs were ordered for today for repeat comprehensive and acute hepatitis panel. Patient states that she is going to be declining any labs to be drawn today. Yesterday she underwent upper endoscopy with Dr. Low with findings of LA grade B esophagitis and mild gastritis. Objective - Vital Signs Vital signs: Vital Signs Temp 99 F 08/18/23 01:32 Pulse 74 08/18/23 01:32 Resp 18 08/18/23 01:32 BP 112/68 08/18/23 01:32 Pulse Ox 97 08/18/23 01:32 FiO2 Intake & Output 08/17/23 08/18/23 08/18/23 18:59 06:59 18:59 Intake Total 200 Balance 200 Weight 58.06 kg Intake: IV 200 Other: Voiding Method Toilet # Voids 3 3 - Exam General appearance: The patient is alert, oriented, appears in no acute distress. HET: Head is normocephalic and atraumatic. Conjunctiva pink. Sclera anicteric. Neck: Supple without lymphadenopathy. Abdomen: Soft, nontender, nondistended. Extremities: Normal skin color and turgor. No pedal edema Skin: No rashes, no jaundice Neurological: No focal deficits. Alert and oriented. - Labs CBC & Chem 7: 08/16/23 09:28 08/16/23 09:28 Assessment and Plan (1) Elevated LFTs Narrative/Plan: 67-year-old female improved with metastatic ovarian cancer had presented with epigastric pain and burning associated with nausea and vomiting which had been occurring for several days. She had initially been seen at [facility] and was transferred here for concerns for gastric outlet obstruction. She underwent testing that was negative. However she was also noted to have elevated LFTs on admission both at [facility] and here. She had further evaluation with a gallbladder ultrasound that showed normal gallbladder but did show mildly dilated common bile duct at 1.0 cm. Initially at [facility] she did have mild elevation in her total bilirubin with LFTs as high as the 400s. LFTs have been trending down, abdominal pain is completely resolved. Patient was in significant amount of ifsc-dhs-vuqjule salas pplements likely which were causing her symptoms and could also be causing medication induced elevation of liver enzymes. Patient has stopped taking them since right prior to coming into the hospital so approximately 3 to 4 days ago. No further workup indicated at this time. Will run a hepatitis panel and monitor LFTs closely. Patient is refusing inpatient labs. Prescription given for outpatient comprehensive and acute hepatitis panel. Recommend follow-up with gastroenterology in 2 weeks. Current Visit: Yes Status: Acute Code(s): R79.89 - OTHER SPECIFIED ABNORMAL FINDINGS OF BLOOD CHEMISTRY SNOMED Code(s): 885834661 (2) Epigastric pain Narrative/Plan: Patient is status post upper endoscopy with general surgery. Epigastric pain and nausea and vomiting resolved. Current Visit: Yes Status: Acute Code(s): R10.13 - EPIGASTRIC PAIN SNOMED Code(s): 69446353 (3) Nausea and vomiting Narrative/Plan: Resolved Current Visit: Yes Status: Acute Code(s): R11.2 - NAUSEA WITH VOMITING, UNSPECIFIED SNOMED Code(s): 89361790 (4) Ovarian carcinoma Current Visit: Yes Status: Chronic Priority: High Code(s): C56.9 - MALIGNANT NEOPLASM OF UNSPECIFIED OVARY SNOMED Code(s): 172114200 (5) Brain mass Current Visit: No Status: Acute Code(s): G93.89 - OTHER SPECIFIED DISORDERS OF BRAIN SNOMED Code(s): 179714160 Plan: 1. Continue symptomatic and supportive care 2. Diet as tolerated 3. Repeat CMP, patient refusing inpatient draw 4. Hepatitis panel ordered, patient refusing inpatient draw 5. Recommend discontinuing [id number]-tpc-xlrzlgb supplements LFTs may be medication induced 6. Patient is status post upper endoscopy 7. Continue Protonix 40 mg daily 8. Patient is cleared for discharge and further workup can be done as an outpatient. Laboratory prescriptions given to patient. Follow-up in 2 weeks. Thank you for this consultation, we will sign off at this time. Dr. Latasha Brennan I agree with the dictator's note, documented as a scribe by Nan Mustafa.
[2023-08-18 08:28] VITALS: BP 151/92; PULSE 78; TEMP 98.1
--- NOTE | 2023-08-18 09:48 | P.DS ---
Providers Date of admission: 08/15/23 06:18 Expected date of discharge: 08/18/23 Attending physician: Philippe Shi Consults: 08/15/23 06:18 Consult Physician Routine Consulting Provider: Tori Low Consult Reason/Comments: Karina Do you want consulting provider notified?: Yes 08/15/23 10:30 Consult Physician Routine Consulting Provider: Justo Mauricio Consult Reason/Comments: hydronephrosis, CT scan paper chart Do you want consulting provider notified?: Yes 08/15/23 10:32 Consult Physician Routine Consulting Provider: Vj Lopez Consult Reason/Comments: reoccuring ovarian cancer with brain mets. stopped chemo in [facility] Do you want consulting provider notified?: Yes 08/16/23 14:48 Consult Physician Routine Consulting Provider: Donna Brennan Consult Reason/Comments: elevated LFTs, dilated CBD on US Do you want consulting provider notified?: Yes Primary care physician: Liza Levine Hospital Course: Discharge diagnosis 1. increased nausea secondary to gastric outlet obstruction. CT completed at [facility] 2. History of recurrent ovarian cancer with brain metastases. Patient reports that she received gamma treatment in March and was started on chemotherapy but could not tolerate it and treatment stopped. Patient was following out of [facility]. 3. Elevated liver enzymes 4. Acute kidney injury. Continue gentle hydration 5. Right hydronephrosis. Urology service is consulted 6. History of ovarian cancer in 2016 hospital course this is a 67-year-old female patient of Dr. Levine who was a transfer from [facility] due to concerns of gastric outlet obstruction. Patient has a past medical history of ovarian cancer with reoccurrence and brain metastases in which she received gamma treatment in March. Patient reports that she was also started taking on chemotherapy at that time but was unable to tolerate and stopped taking them. Patient was falling out of [facility]. Reports that after she stopped taking chemotherapy started seeing a machine sizer and has been taking supplements since. Patient reports that every night she becomes increasingly nauseous and throws up starting around 10 PM. Additional medical history includes cellulitis.CT completed at [facility] showing large right hydronephrosis and associated cortical thinning. Marked distended stomach and duodenum suggestive partial gastric obstruction and moderate ascites. labwork revealing AST 495, ALT 412 and alkaline phosphatase 226 lipase also elevated at 331. At this time patient will be admitted surgical services have been consulted. We'll also consult urology services for right hydronephrosis. Also consult oncology services given patient's history of metastatic ovarian cancer.current vital signs temp 98.6, heart rate 75, respiratory rate 18, blood pressure 146/82 with a pulse ox 99% on room air. She is currently resting comfortably in bed at bedside TO answer. Patient denies chest pain or shortness of breath. Patient denies any nausea vomiting or diarrhea at this time. Patient denies any urinary burning or frequency On 08/16/2023 patient is alert and oriented 3.. patient currently sitting up in bed eating clear liquid breakfast. Patient denies any further episodes of nausea or vomiting. Neurology, surgical and oncology services have all been consulting awaiting further input. Diet has been advanced per surgical services. At this time patient denies chest pain or shortness of breath. Patient denies nausea vomiting or diarrhea. Patient denies any urinary burning or frequency. Current vital signs temp 98.0, heart rate 64, respiratory rate 16, blood pressure 131/64 with a pulse ox 100% on room air on 08/17/2023 patient was seen and examined on the medical she is alert and oriented 3 in no apparent distress, she is complaining of nausea otherwise she denies any complaints, there is no fever or chills no headache or dizziness no chest pain no shortness of breath no cough no nausea or vomiting no abdominal pain no diarrhea and no urinary symptoms. patient underwent an EGD today, she is being evaluated by oncology, general surgery, urology, and gastroenterology, will continue to follow closely. on 08/18/2023 patient's alert and oriented 3. Patient is very eager to be DC'd home. Patient has plan to follow up with urology services for possible stent placement and follow-up with GI services for further management of elevated liver enzymes. Patient follows outcome of [facility] for ovarian cancer. Will DC patient on Protonix. Patient denies nausea vomiting or diarrhea at this time. Patient denies chest pain or shortness of breath. Patient denies any urinary burning Patient Condition at Discharge: Stable Plan - Discharge Summary Discharge Rx Participant: No New Discharge Prescriptions: New Pantoprazole [Protonix] 40 mg PO DAILY 30 Days #30 tab Discharge Medication List Pantoprazole [Protonix] 40 mg PO DAILY 30 Days #30 tab 08/18/23 [Rx] Follow up Appointment(s)/Referral(s): Liza Levine MD [Primary Care Provider] - 1-2 days Donna Brennan MD [STAFF PHYSICIAN] - 2 Weeks Santosh Mckee MD [STAFF PHYSICIAN] - 1 Week Ambulatory/Diagnostic Orders: Comprehensive Metabolic Panel [LAB.AMB] Time Frame: 3 Days, Location: None Selected Activity/Diet/Wound Care/Special Instructions: activity as tolerated Diet heart healthy Discharge Disposition: HOME SELF-CARE
--- NOTE | 2023-08-18 11:23 | P.PN ---
Subjective Progress Note Date: 08/18/23 CHIEF COMPLAINT: abdominal pain HISTORY OF PRESENT ILLNESS: Patient is tolerating diet. Denies any abdominal pain. She is having bowel movements and flatus. she is scheduled for discharge today. Patient is status post EGD with biopsies. Results did show hiatal hernia, esophagitis and gastritis. Patient seen by GI service. They felt elevated liver enzymes were likely medication induced. PHYSICAL EXAM: VITAL SIGNS: Reviewed GENERAL: Well-developed in no acute distress. HEENT: No sclera icterus. Extraocular movements grossly intact. Moist buccal mucosa. Head is atraumatic, normocephalic. Hears conversational speech. No nasal drainage. NECK: Supple without lymphadenopathy. CHEST: Non-labored respirations and equal bilateral excursions. CARDIOVASCULAR: Palpable 2+ radial pulses. ABDOMEN: Soft. Nondistended. Nontender. MUSCULOSKELETAL: No clubbing or cyanosis. NEUROLOGIC: No focal or lateralizing signs. Cranial nerves II through XII grossly intact. PSYCH: Appropriate affect. Alert and oriented to person, place and time. SKIN: Well perfused. Good skin turgor. ASSESSMENT: 1. Abdominal pain resolved. No evidence of small bowel obstruction or gastric outlet obstruction on small bowel follow-through 2. Elevated liver enzymes likely medication induced per GI service 3. Hiatal hernia, esophagitis and gastritis noted on EGD PLAN: -Patient can be discharged from surgical standpoint -Recommend patient follows up with oncology service for EGD biopsy results Physician Facilities Specialist note has been reviewed by physician. Signing provider agrees with the documented findings, assessment, and plan of care. Objective - Vital Signs Vital signs: Vital Signs Temp 98.1 F 08/18/23 07:43 Pulse 78 08/18/23 07:43 Resp 18 08/18/23 07:43 BP 151/92 08/18/23 07:43 Pulse Ox 96 08/18/23 07:43 FiO2 Intake & Output 08/17/23 08/18/23 08/18/23 18:59 06:59 18:59 Intake Total 200 Balance 200 Weight 58.06 kg Intake: IV 200 Other: Voiding Method Toilet # Voids 3 3 - Labs CBC & Chem 7: 08/16/23 09:28 08/16/23 09:28
== END 2023-08-18 11:09 | disposition home or self-care (01) | DRG 381 ==
LOC: EC 05:27 → 4SSUR 06:18
PROVIDERS: ADMIT Internal Medicine; ATTEND Internal Medicine
PROC: 0DB78ZX Excision of Stomach, Pylorus, Via Natural or Artificial Opening Endoscopic, Diagnostic (ICD-10-PCS; 2023-08-17)
PROC: 0DB98ZX Excision of Duodenum, Via Natural or Artificial Opening Endoscopic, Diagnostic (ICD-10-PCS; 2023-08-17)
PROC: 0DB38ZX Excision of Lower Esophagus, Via Natural or Artificial Opening Endoscopic, Diagnostic (ICD-10-PCS; principal; 2023-08-17 07:30)
DX: K31.1 Adult hypertrophic pyloric stenosis (principal); C56.9 Malignant neoplasm of unspecified ovary; C79.31 Secondary malignant neoplasm of brain; N17.9 Acute kidney failure, unspecified; N13.30 Unspecified hydronephrosis; K22.10 Ulcer of esophagus without bleeding; Z85.43 Personal history of malignant neoplasm of ovary; R74.8 Abnormal levels of other serum enzymes; R79.89 Other specified abnormal findings of blood chemistry; K83.8 Other specified diseases of biliary tract; G89.29 Other chronic pain; K29.50 Unspecified chronic gastritis without bleeding; K44.9 Diaphragmatic hernia without obstruction or gangrene; Z85.89 Personal history of malignant neoplasm of other organs and systems
CPT/HCPCS: 43239; 74250; 76705; 80053; 83605; 83690; 83735; 83880; 84100; 84484; 85025; 85610; 85730; 88305; 88312; 93005; 96360; 96361; 99285

== ENCOUNTER 2023-09-03 14:30 | Emergency (ER) | payer MEDICARE ==
--- NOTE | 2023-09-03 15:04 | ED ---
General Adult HPI - General Chief complaint: Abdominal Pain Stated complaint: Abd pain, blood in urine Time Seen by Provider: 09/03/23 14:41 Source: patient, RN notes reviewed, old records reviewed Mode of arrival: ambulatory Limitations: no limitations - History of Present Illness Initial comments: Patient is a pleasant 67-year-old female presenting to the emergency department with concerns for not being able to eat or drink. Symptoms have progressed over the past 5 days. Patient states even a small amount causes a tremendous amount of discomfort. Patient does have history of recent admission just discharged a couple weeks ago where she was vomiting. Patient states she has had leg swelling for the last several months. Patient states her eyes do look a little bit yellow to her. Patient states she also had some sort of blockage of her rig ht ureter and a stent will be placed. - Related Data Previous Rx's Medication Instructions Recorded Pantoprazole [Protonix] 40 mg PO DAILY 30 Days #30 tab 08/18/23 Allergies Allergy/AdvReac Type Severity Reaction Status Date / Time cat dander Allergy eye Verified 09/03/23 17:33 swelling & itching poison chris extract Allergy Rash/Hives Verified 09/03/23 17:33 Review of Systems ROS Statement: Those systems with pertinent positive or pertinent negative responses have been documented in the HPI. ROS Other: All systems not noted in ROS Statement are negative. Constitutional: Denies: fever Eyes: Reports: as per HPI ENT: Denies: ear pain Respiratory: Denies: cough Cardiovascular: Denies: chest pain Endocrine: Denies: fatigue Gastrointestinal: Reports: as per HPI, abdominal pain Genitourinary: Reports: hematuria Past Medical History Past Medical History: Cancer, Renal Disease Additional Past Medical History / Comment(s): Cellulitis legs, Ovarian CA-not treating History of Any Multi-Drug Resistant Organisms: None Reported Past Surgical History: No Surgical Hx Reported Additional Past Surgical History / Comment(s): 2016 tumor removed Past Psychological History: No Psychological Hx Reported Smoking Status: Never smoker Past Alcohol Use History: None Reported Past Drug Use History: None Reported - Past Family History Father Family Medical History: No Reported History General Exam Limitations: no limitations General appearance: alert, in no apparent distress Head exam: Present: normocephalic Eye exam: Present: scleral icterus ENT exam: Present: normal oropharynx Neck exam: Present: normal inspection Respiratory exam: Present: normal lung sounds bilaterally Cardiovascular Exam: Present: regular rate, normal rhythm Expanded Peripheral pulses: 2+: Dorsalis Pedis (R), Dorsalis Pedis (L) GI/Abdominal exam: Present: soft, tenderness (Mild right upper quadrant), organomegaly (Appears to be some hepatomegaly). Absent: distended Extremities exam: Present: pedal edema. Absent: calf tenderness Neurological exam: Present: alert Psychiatric exam: Present: normal affect, normal mood Skin exam: Present: other (Jaundice appearance) Course Vital Signs 09/03/23 09/03/23 09/03/23 14:35 15:33 18:13 Temperature 97.6 F Pulse Rate 77 74 78 Respiratory 20 16 18 Rate Blood Pressure 137/99 132/79 123/76 O2 Sat by Pulse 96 100 100 Oximetry Medical Decision Making - Medical Decision Making Was pt. sent in by a medical professional or institution (, PA, PARKING METER MECHANIC, urgent care, hospital, or care home...) When possible be specific @ -No Did you speak to anyone other than the patient for history (EMS, parent, family, police, friend...)? What history was obtained from this source @ -Was present and helps provide history including previous admission Did you review nursing and triage notes (agree or disagree)? Why? @ -I reviewed and agree with nursing and triage notes Were old charts reviewed (outside hosp., previous admission, EMS record, old EKG, old radiological studies, urgent care reports/EKG's, care home records)? Report findings @ -Previous admission and labs reviewed. Bilirubin has increased Differential Diagnosis (chest pain, altered mental status, abdominal pain women, abdominal pain men, vaginal bleeding, weakness, fever, dyspnea, syncope, headache, dizziness, GI bleed, back pain, seizure, CVA, palpatations, mental health, musculoskeletal)? @ -Differential Abdominal Pain Women: Appendicitis, Cholecystitis, diverticulosis, ischemic bowel, pancreatitis, hepatitis, UTI, gastroenteritis, AAA, incarcerated hernia, bowel obstruction, constipation, inflammatory bowel, hepatitis, peptic ulcer disease, splenic infarction, perforated viscus, vulvitis, ovarian torsion, PID, kidney stone, placenta abruption, this is not meant to be an all-inclusive list EKG interpreted by me (3pts min.). @ -As above X-rays interpreted by me (1pt min.). @ -None done CT interpreted by me (1pt min.). @ -CT scan with multiple findings including concern for common bile duct and pancreatic duct dilation, possible pancreatic mass. Mesenteric soft tissue mass. Severe right hydronephrosis. Thickening of the bladder. Ascites. Inguinal lymph nodes. Breast wall thickening. U/S interpreted by me (1pt. min.). @ -None done What testing was considered but not performed or refused? (CT, X-rays, U/S, labs)? Why? @ -None What meds were considered but not given or refused? Why? @ -None Did you discuss the management of the patient with other professionals (professionals i.e. DrSandra, PA, PARKING METER MECHANIC, lab, RT, psych nurse, social media designer, library circulation department chief, teacher, helicopter officer, telephonic nurse case manager)? Give summary @ -Case was discussed with Cynthia at [facility] as well as Dr. Link who will accept transfer. Patient request [facility]. Was smoking cessation discussed for >3mins.? @ -No Was critical care preformed (if so, how long)? @ -No Were there social determinants of health that impacted care today? How? (Homelessness, low income, unemployed, alcoholism, drug addiction, transportation, low edu. Level, literacy, decrease access to med. care, shelter, rehab)? @ -No Was there de-escalation of care discussed even if they declined (Discuss DNR or withdrawal of care, Hospice)? DNR status @ -No What co-morbidities impacted this encounter? (DM, HTN, Smoking, COPD, CAD, Cancer, CVA, ARF, Chemo, Hep., AIDS, mental health diagnosis, sleep apnea, morbid obesity)? @ -History of ovarian cancer with 3 previous treatment Was patient admitted / discharged? Hospital course, mention meds given and route, prescriptions, significant lab abnormalities, going to OR and other pertinent info. @ -Patient presents with limited oral intake over the past 5 days. Patient becoming jaundiced. Patient has multiple abnormalities on CT scan with concern for pancreatic mass and obstruction. Patient will be transferred for gastr ointestinal care as well as likely needing surgical, urology and oncology care. Undiagnosed new problem with uncertain prognosis? @ -No Drug Therapy requiring intensive monitoring for toxicity (Heparin, Nitro, Insulin, Cardizem)? @ -No Were any procedures done? @ -No Diagnosis/symptom? @ -Pancreatic mass. Mesenteric mass. Right hydronephrosis. Common bile duct dilation. Pancreatic duct dilation. Acute, or Chronic, or Acute on Chronic? @ -All acute Uncomplicated (without systemic symptoms) or Complicated (systemic symptoms)? @ -Complicated with elevated liver enzyme Side effects of treatment? @ -No Exacerbation, Progression, or Severe Exacerbation? @ -No Poses a threat to life or bodily function? How? (Chest pain, [place], [place], pneumonia, PE, COPD, DKA, ARF, appy, cholecystitis, CVA, Diverticulitis, Homicidal, Suicidal, threat to staff... and all critical care pts) @ -Threat to biliary and pancreatic function - Lab Data Result diagrams: 09/03/23 15:14 09/03/23 15:14 Lab Results 09/03/23 09/03/23 09/03/23 Range/Units 15:07 15:14 15:14 WBC 5.8 (3.8-10.6) k/uL RBC 3.98 (3.80-5.40) m/uL Hgb 12.7 (11.4-16.0) gm/dL Hct 39.0 (34.0-46.0) % MCV 98.1 (80.0-100.0) fL MCH 31.8 (25.0-35.0) pg MCHC 32.4 (31.0-37.0) g/dL RDW 13.0 (11.5-15.5) % Plt Count 273 (150-450) k/uL MPV 8.0 Neutrophils % 70 % Lymphocytes % 19 % Monocytes % 5 % Eosinophils % 3 % Basophils % 0 % Neutrophils # 4.1 (1.3-7.7) k/uL Lymphocytes # 1.1 (1.0-4.8) k/uL Monocytes # 0.3 (0-1.0) k/uL Eosinophils # 0.2 (0-0.7) k/uL Basophils # 0.0 (0-0.2) k/uL PT 11.2 (10.0-12.5) sec INR 1.0 (<1.2) APTT 23.1 (22.0-30.0) sec Sodium (137-145) mmol/L Potassium (3.5-5.1) mmol/L Chloride (98-107) mmol/L Carbon Dioxide (22-30) mmol/L Anion Gap mmol/L BUN (7-17) mg/dL Creatinine (0.52-1.04) mg/dL Est GFR (CKD-EPI)AfAm (>60 ml/min/1.73 sqM) Est GFR (CKD-EPI)NonAf (>60 ml/min/1.73 sqM) Glucose (74-99) mg/dL Calcium (8.4-10.2) mg/dL Total Bilirubin (0.2-1.3) mg/dL AST (14-36) U/L ALT (4-34) U/L Alkaline Phosphatase (38-126) U/L Total Protein (6.3-8.2) g/dL Albumin (3.5-5.0) g/dL Amylase (30-110) U/L Lipase (23-300) U/L Urine Color Dark Brown Urine Appearance Turbid H (Clear) Urine pH 5.5 (5.0-8.0) Ur Specific Hadley 1.022 (1.001-1.035) Urine Protein 1+ H (Negative) Urine Glucose (UA) Negative (Negative) Urine Ketones 1+ H (Negative) Urine Blood Large H (Negative) Urine Nitrite Negative (Negative) Urine Bilirubin 2+ H (Negative) Urine Urobilinogen <2.0 (<2.0) mg/dL Ur Leukocyte Esterase Moderate H (Negative) Urine RBC >182 H (0-5) /hpf Urine WBC 20 H (0-5) /hpf Ur Squamous Epith Cells 2 (0-4) /hpf Calcium Oxalate Crystal Occasional H (None) /hpf Urine Bacteria Rare H (None) /hpf Urine Mucus Few H (None) /hpf 09/03/23 Range/Units 15:14 WBC (3.8-10.6) k/uL RBC (3.80-5.40) m/uL Hgb (11.4-16.0) gm/dL Hct (34.0-46.0) % MCV (80.0-100.0) fL MCH (25.0-35.0) pg MCHC (31.0-37.0) g/dL RDW (11.5-15.5) % Plt Count (150-450) k/uL MPV Neutrophils % % Lymphocytes % % Monocytes % % Eosinophils % % Basophils % % Neutrophils # (1.3-7.7) k/uL Lymphocytes # (1.0-4.8) k/uL Monocytes # (0-1.0) k/uL Eosinophils # (0-0.7) k/uL Basophils # (0-0.2) k/uL PT (10.0-12.5) sec INR (<1.2) APTT (22.0-30.0) sec Sodium 136 L (137-145) mmol/L Potassium 4.1 (3.5-5.1) mmol/L Chloride 108 H (98-107) mmol/L Carbon Dioxide 18 L (22-30) mmol/L Anion Gap 10 mmol/L BUN 21 H (7-17) mg/dL Creatinine 1.32 H (0.52-1.04) mg/dL Est GFR (CKD-EPI)AfAm 48 (>60 ml/min/1.73 sqM) Est GFR (CKD-EPI)NonAf 41 (>60 ml/min/1.73 sqM) Glucose 88 (74-99) mg/dL Calcium 9.2 (8.4-10.2) mg/dL Total Bilirubin 8.1 H (0.2-1.3) mg/dL AST 335 H (14-36) U/L ALT 467 H (4-34) U/L Alkaline Phosphatase 349 H (38-126) U/L Total Protein 6.7 (6.3-8.2) g/dL Albumin 3.4 L (3.5-5.0) g/dL Amylase 346 H* (30-110) U/L Lipase 347 H (23-300) U/L Urine Color Urine Appearance (Clear) Urine pH (5.0-8.0) Ur Specific [place] (1.001-1.035) Urine Protein (Negative) Urine Glucose (UA) (Negative) Urine Ketones (Negative) Urine Blood (Negative) Urine Nitrite (Negative) Urine Bilirubin (Negative) Urine Urobilinogen (<2.0) mg/dL Ur Leukocyte Esterase (Negative) Urine RBC (0-5) /hpf Urine WBC (0-5) /hpf Ur Squamous Epith Cells (0-4) /hpf Calcium Oxalate Crystal (None) /hpf Urine Bacteria (None) /hpf Urine Mucus (None) /hpf Disposition Clinical Impression: Pancreatic mass Disposition: OTHER INSTITUTION NOT DEFINED Is patient prescribed a controlled substance at d/c from ED?: No Referrals: Liza Levine MD [Primary Care Provider] - 1-2 days Time of Disposition: 19:56 - Out of Hospital Transfer - Req. Specs Out of Hospital Transfer - Requested Specifics: Medical ICU
[2023-09-03 15:22] LABS: Basophils % (A) 0 %; Eosinophils # (A) 0.2 k/uL (0-0.7); Eosinophils % (A) 3 %; HGB 12.7 gm/dL (11.4-16.0); Lymphocytes # (A) 1.1 k/uL (1.0-4.8); Lymphocytes % (A) 19 %; MCH 31.8 pg (25.0-35.0); MCHC 32.4 g/dL (31.0-37.0); MCV 98.1 fL (80.0-100.0); Monocytes # (A) 0.3 k/uL (0-1.0); Monocytes % (A) 5 %; Neutrophils # (A) 4.1 k/uL (1.3-7.7); Neutrophils % (A) 70 %; Platelet Count 273 k/uL (150-450); RBC 3.98 m/uL (3.80-5.40); WBC 5.8 k/uL (3.8-10.6)
[2023-09-03 15:24] LABS: Appearance,Urine Turbid (Clear); Bacteria,Urine Rare /hpf; Bilirubin,Urine 2+ (Negative); Blood,Urine Large (Negative); Calcium Oxalate Crystals,Urine Occasional /hpf; Color,Urine Dark Brown; Glucose,Urine (UA) Negative (Negative); Ketones,Urine 1+ (Negative); Leukocyte Esterase,Urine Moderate (Negative); Mucus,Urine Few /hpf; Nitrite,Urine Negative (Negative); PH, Urine 5.5 (5.0-8.0); Protein,Urine 1+ (Negative); RBC,Urine >182 /hpf (0-5); Specific Gravity,Urine 1.022 (1.001-1.035); Squamous Epithelial Cell,Urine 2 /hpf (0-4); Urobilinogen,Urine <2.0 mg/dL (<2.0); WBC,Urine 20 /hpf (0-5)
[2023-09-03] MEDS: PANTOPRAZOLE 40 MG/10 ML VIAL IVP STA (15:31)
[2023-09-03] MEDS: SODIUM CHLORIDE 0.9% 1,000 ML IV STA (15:31)
[2023-09-03 15:33] LABS: ALT 467 U/L (4-34); AST 335 U/L (14-36); African American GFR (CKD) 48 (>60 ml/min/1.73 sqM); Albumin 3.4 g/dL (3.5-5.0); Alkaline Phosphatase 349 U/L (38-126); Anion Gap 10 mmol/L; Blood Urea Nitrogen 21 mg/dL (7-17); Calcium 9.2 mg/dL (8.4-10.2); Carbon Dioxide 18 mmol/L (22-30); Chloride 108 mmol/L (98-107); Glucose 88 mg/dL (74-99); Lipase 347 U/L (23-300); Non-African American GFR(CKD) 41 (>60 ml/min/1.73 sqM); Partial Thromboplastin Time 23.1 sec (22.0-30.0); Potassium 4.1 mmol/L (3.5-5.1); Prothrombin Time 11.2 sec (10.0-12.5); Sodium 136 mmol/L (137-145); Total Bilirubin 8.1 mg/dL (0.2-1.3); Total Protein 6.7 g/dL (6.3-8.2)
[2023-09-03 15:44] LABS: Amylase 346 U/L (30-110)
--- NOTE | 2023-09-03 18:59 | CT ---
EXAMINATION TYPE: CT abdomen pelvis w con CT DLP: 574.3 mGycm, Automated exposure control for dose reduction was used. DATE OF EXAM: 09/03/2023 4:23 PM COMPARISON: Outside CT 08/15/2023 CLINICAL INDICATION:Female, 67 years old with history of abdominal pain; abd pain, jaundice TECHNIQUE: Axial CT of the abdomen and pelvis. Sagittal and coronal reformats were created on a [employer] workstation. Contrast used:80 mL of Isovue 300 with IV Contrast, (none if empty) Oral contrast used: without Oral Contrast (none if empty) FINDINGS: LOWER CHEST: Lung bases clear. Heart is not enlarged. Partially seen asymmetric skin thickening of th e right breast. There is [id number] diffuse body wall edema suggesting anasarca, worse in the p grant and abdomen than chest. ABDOMEN LIVER, GB, BILIARY TREE: There is moderate to severe intrahepatic biliary duct dilatation and dilatat ion of the upper CBD. More distally, this appearance is lost near the level of the pancreatic head. M ain pancreatic duct appears mildly dilated up to 2.5mm, however this dilatation is also not clearly s een at the pancreatic head. PANCREAS: Mild isoattenuating fullness of the pancreatic head with some craniocaudal elongation sugge sted. The remainder of the pancreas is grossly unremarkable by CT. SPLEEN: Unremarkable. ADRENAL GLANDS: Mildly thickened, may be seen with hyperplasia.. KIDNEYS AND URETERS: Right kidney is smaller than the left, there is again severe right-sided hydrone phrosis which is likely long-standing. Ureter appears dilated throughout its course, and there is bul bous prominence suggesting possible ureterocele at the ureterovesical junction. PELVIS BLADDER: Incompletely distended and difficult to assess. There is suggestion of an irregularly thicke patricia appearance along the posterior aspect of the bladder wall. Pelvic phleboliths are present. No def inite bladder calculi. REPRODUCTIVE: Uterus is likely present, but not well seen. The ovaries are not clearly seen. ABDOMEN & PELVIS STOMACH AND BOWEL: Stomach appears moderately dilated. There is fluid in the stomach and the duodenum . Mildly thickened and narrowed appearance of the gastric outlet is suggested. The duodenal sweep libia ears patent. No significantly distended small bowel loops to suggest obstruction at this time. Some l oops appear clustered or matted together without discrete mass or obstruction seen. The appendix is not seen with certainty. PERITONEUM/RETROPERITONEUM: No evidence of free air. Small to moderate volume of ascites in the abd omen and pelvis. VASCULATURE: Moderate atherosclerotic calcifications are present throughout the abdominal aorta and i ts branches. No evidence of aortic aneurysm. Portal veins and splenic vein are enhancing. The upper S MV is enhancing, however this appears to be secondary to collateral vessels reconstituting the upper SMV, as farther inferiorly SMV appears to be occluded by a lobulated soft tissue mass at the root of the mesentery which measure about 4.1 x 2.4 cm on axial image 35, and about 3.9 cm on coronal image 3 5. There are likely additional smaller adjacent nodes or masses just superiorly and laterally towards the left from this mass. Additional mesenteric deposits cannot be excluded. LYMPH NODES: No clearly identifiable lymphadenopathy otherwise within the abdomen or pelvis. Several mildly enlarged to borderline prominence bilateral inguinal lymph nodes, largest on the right side wi th the largest measuring 15 mm, 12 mm, and 13 mm in short axis. SOFT TISSUE/ABDOMINAL WALL: Moderate diffuse body wall edema. MUSCULOSKELETAL: Generalized osteopenia and moderate degenerative changes of the lumbar spine. No raquel be acute bony abnormalities. IMPRESSION: 1. Moderate to severe intrahepatic biliary duct dilatation and dilatation of the upper CBD. More dis tally, this appearance is lost near the level of the pancreatic head. Main pancreatic duct appears mi ldly dilated up to 2.5mm, however this dilatation is also not clearly seen at the pancreatic head. 2. Mild isoattenuating fullness of the pancreatic head with some craniocaudal elongation suggested. An occult pancreatic mass may be present. Further evaluation with MR/MRCP or ERCP may be considered. 3. Lobulated soft tissue mass at the root of the mesentery measuring up to 4.1 cm, highly concerning for metastasis. This results in occlusion of the inferior SMV, there are collateral venous channels which reconstitute the upper SMV. 4. Severe right-sided hydronephrosis, likely long-standing as the right kidney is smaller than the l eft. Possible ureterocele at the ureterovesical junction. 5. Urinary bladder is incompletely distended and difficult to assess. There is suggestion of an irre gularly thickened appearance along the posterior aspect of the bladder wall. Consider inflammation an d malignancy. 6. Stomach appears moderately distended, with nonspecific mildly thickened and narrowed appearance o f the gastric outlet. 7. Small to moderate volume of ascites in the abdomen and pelvis. 8. Several nonspecific enlarged right inguinal lymph nodes. 9. Moderate diffuse body wall edema, greater in the pelvis and abdomen than chest. 10. Partially seen asymmetric skin thickening of the right breast. Could be due to the edema, and/or other causes including breast malignancy.
[2023-09-03] MEDS ORDERED: MORPHINE SULFATE 4 MG/ML SYRINGE IVP PRN (20:18)
[2023-09-03] MEDS ORDERED: MORPHINE SULFATE 2 MG/ML SYRINGE IVP PRN (20:18)
[2023-09-04] MEDS: PANTOPRAZOLE 40 MG/10 ML VIAL IVP SCH (08:17)
[2023-09-04 13:37] VITALS: RESP 18
--- NOTE | 2023-09-04 18:12 | P.CONS ---
History of Present Illness - Reason for Consult Consult date: 09/04/23 - History of Present Illness Xochilt Merida, is a 67-year-old female, Who presented to [facility] emergency room With a chief complaint of abdominal pain She was evaluated in the emergency room vital examination on presentation revealed A temperature of 97.6 pulse 77 respiration 20 blood pressure 137/99 pu lse ox 96% on room air Laboratory data revealed A white blood count of 5.8 hemoglobin 12.7 platelet count 273 sodium 136 potassium 4.1 chloride 108 CO2 18 BUN 21 creatinine 1.3 Amylase 346 lipase 347 Testing in the emergency room revealed Computed tomography scan of the abdomen and pelvis revealed moderate to severe intrahepatic biliary duct dilated Tatian and at Tatian of the common bile duct with fullness of the pancreatic head and lobulated soft tissue mass at the root of the mesentery measuring 4.1 cm highly concerning for metastasis, And severe right sided hydronephrosis and distended stomach with small to moderate ascites. Patient was Transferred emergency room to emergency room to [facility], she is currently awaiting bed availability at [facility]. Past Medical History Past Medical History: Cancer, Renal Disease Additional Past Medical History / Comment(s): Cellulitis legs, Ovarian CA-not t reating History of Any Multi-Drug Resistant Organisms: None Reported Past Surgical History: No Surgical Hx Reported Additional Past Surgical History / Comment(s): 2016 tumor removed Past Psychological History: No Psychological Hx Reported Smoking Status: Never smoker Past Alcohol Use History: None Reported Past Drug Use History: None Reported - Past Family History Father Family Medical History: No Reported History Medications and Allergies Home Medications Medication Instructions Recorded Confirmed Type Pantoprazole [Protonix] 40 mg PO DAILY 30 Days #30 tab 08/18/23 09/03/23 Rx Allergies Allergy/AdvReac Type Severity Reaction Status Date / Time cat dander Allergy eye Verified 09/03/23 17:33 swelling & itching poison chris extract Allergy Rash/Hives Verified 09/03/23 17:33 Physical Exam Vitals: Vital Signs Temp Pulse Resp BP Pulse Ox 09/04/23 13:13 98.0 F 97 18 137/74 99 09/04/23 06:02 98.2 F 77 15 126/63 100 09/03/23 23:45 98.5 F 82 16 125/65 98 09/03/23 20:48 97.6 F 80 16 129/68 100 09/03/23 18:13 78 18 123/76 100 Intake and Output 09/04/23 09/04/23 09/04/23 06:59 14:59 22:59 Other: # Voids 3 In general patient is alert and oriented x 3 in no distress HEENT head normocephalic and atraumatic Neck is supple no JVD no goiter no lymphadenopathy no carotid bruit Chest examination is clear to auscultation no crackles no wheezing Cardiac exam reveals regular heart sounds S1 and S2 no gallops no murmurs Abdomen is soft with mild diffuse tenderness no organomegaly with normal bowel sounds Extremity exam reveals no edema no cyanosis or clubbing Neurological examination reveals no gross focal deficits Results CBC & Chem 7: 09/03/23 15:14 09/03/23 15:14 Assessment and Plan Plan: Abdominal pain Known history of ovarian cancer with metastatic disease Elevated liver enzymes Acute kidney injury Right hydronephrosis Pancreatic head mass with dilated common bile duct and intrahepatic ducts Evidence of urinary tract infection At this time patient seen and examined Awaiting transfer to [facility] Will start IV Rocephin for urinary tract infection Home medications reviewed and reordered Recheck labs in a.m. and follow closely
[2023-09-04 18:52] VITALS: BP 133/78; PULSE 84; TEMP 98
== END 2023-09-04 18:27 | disposition other institution (70) ==
LOC: EC 14:30
DX: K86.9 Disease of pancreas, unspecified (principal); Z91.048 Other nonmedicinal substance allergy status; Z88.8 Allergy status to other drugs, medicaments and biological substances
CPT/HCPCS: 36415; 80053; 82150; 83690; 85025; 85610; 85730; 81001; 74177; 99285; 96374; 96361 ×16; 96375; C9113 ×2; Q9967

== ENCOUNTER 2023-09-12 22:42 | Emergency (ER) | payer MEDICARE ==
[2023-09-13] MEDS: SODIUM CHLORIDE 0.9% 1,000 ML IV STA ×2 (00:22→03:24)
--- NOTE | 2023-09-13 00:39 | ED ---
General Adult HPI - General Chief complaint: Nausea/Vomiting/Diarrhea Stated complaint: Nausea,Vomitng -post surgery Time Seen by Provider: 09/12/23 22:50 Source: patient Mode of arrival: ambulatory Limitations: no limitations - History of Present Illness Initial comments: 67-year-old female with past medical history of ovarian cancer who presents to the emergency department reporting nausea vomiting. Patient was just recently hospitalized at [facility]. She had a pancreatic stent placed as well as 2 nephrostomy tubes. States that since she has been home she has not been able to eat or drink much. She began developing worsening pain in her abdomen. They went down to [facility] yesterday however they state that they sat in the waiting room for 5 hours. They then decided to leave. Patient was able to eat some breakfast this morning however her states that she threw it up approximately 12 hours later. The patient has been losing a considerable amount of weight. She also admits to some fevers. No changes in the nephrostomy output. Denies any diarrhea. No chest pain or cough. No other alleviating, precipitating or modifying factors - Related Data Previous Rx's Medication Instructions Recorded Pantoprazole [Protonix] 40 mg PO DAILY 30 Days #30 tab 08/18/23 Allergies Allergy/AdvReac Type Severity Reaction Status Date / Time cat dander Allergy eye Verified 09/12/23 22:50 swelling & itching poison chris extract Allergy Rash/Hives Verified 09/12/23 22:50 Review of Systems ROS Statement: Those systems with pertinent positive or pertinent negative responses have been documented in the HPI. ROS Other: All systems not noted in ROS Statement are negative. Past Medical History Past Medical History: Cancer, Renal Disease Additional Past Medical History / Comment(s): Cellulitis legs, Ovarian CA-not treating History of Any Multi-Drug Resistant Organisms: None Reported Past Surgical History: No Surgical Hx Reported, Heart Catheterization With Stent Additional Past Surgical History / Comment(s): 2016 tumor removed Past Psychological History: No Psychological Hx Reported Smoking Status: Never smoker Past Alcohol Use History: None Reported Past Drug Use History: None Reported - Past Family History Father Family Medical History: No Reported History General Exam Limitations: no limitations General appearance: alert, cachectic Eye exam: Present: scleral icterus ENT exam: Present: normal exam, mucous membranes moist Neck exam: Present: normal inspection. Absent: tenderness, meningismus, lymphadenopathy Respiratory exam: Present: normal lung sounds bilaterally. Absent: respiratory distress, wheezes, rales, rhonchi, stridor Cardiovascular Exam: Present: normal rhythm, tachycardia GI/Abdominal exam: Present: tenderness (Generalized), other (Bilateral nephrostomy tubes in place) Psychiatric exam: Present: normal affect, normal mood Skin exam: Present: warm, dry, intact, normal color. Absent: rash Course Vital Signs 09/12/23 09/12/23 09/13/23 22:48 23:23 00:23 Temperature 97.6 F 98.3 F Pulse Rate 124 H 109 H 95 Respiratory 20 18 16 Rate Blood Pressure 83/64 92/60 82/53 O2 Sat by Pulse 94 L 95 95 Oximetry 09/13/23 09/13/23 09/13/23 02:14 02:35 03:00 Temperature Pulse Rate 101 H 99 99 Respiratory 16 16 18 Rate Blood Pressure 83/58 93/60 104/64 O2 Sat by Pulse 97 98 99 Oximetry 09/13/23 09/13/23 04:00 05:11 Temperature Pulse Rate 97 94 Respiratory 16 16 Rate Blood Pressure 85/58 95/64 O2 Sat by Pulse 95 98 Oximetry Medical Decision Making - Medical Decision Making Was pt. sent in by a medical professional or institution (, PA, INFORMATION SYSTEMS CONSULTANT, urgent care, hospital, or group home...) When possible be specific @ -No Did you speak to anyone other than the patient for history (EMS, parent, family, police, friend...)? What history was obtained from this source @ -I spoke with the patient's in regards to her stay at [facility] and recurrent symptoms now Did you review nursing and triage notes (agree or disagree)? Why? @ -I reviewed and agree with nursing and triage notes Were old charts reviewed (outside hosp., previous admission, EMS record, old EKG, old radiological studies, urgent care reports/EKG's, group home records)? Report findings @ -I reviewed patient's discharge summary from August 17 Differential Diagnosis (chest pain, altered mental status, abdominal pain women, abdominal pain men, vaginal bleeding, weakness, fever, dyspnea, syncope, heada kurt, dizziness, GI bleed, back pain, seizure, CVA, palpatations, mental health, musculoskeletal)? @ -Differential Abdominal Pain Women: Appendicitis, Cholecystitis, diverticulosis, ischemic bowel, pancreatitis, hepatitis, UTI, gastroenteritis, AAA, incarcerated hernia, bowel obstruction, constipation, inflammatory bowel, hepatitis, peptic ulcer disease, splenic infarction, perforated viscus, vulvitis, ovarian torsion, PID, kidney stone, placenta abruption, this is not meant to be an all-inclusive list EKG interpreted by me (3pts min.). @ -Yes and demonstrates sinus tachycardia with a rate of 105. AR interval 150. QRS 84. QTc of 392. Peaked T wave in V2 as well as the inferior leads. No ST segment depression X-rays interpreted by me (1pt min.). @ -None done CT interpreted by me (1pt min.). @ -Yes and demonstrates dilation of the intrahepatic biliary ducts. Moderate ascites. Pneumobilia U/S interpreted by me (1pt. min.). @ -None done What testing was considered but not performed or refused? (CT, X-rays, U/S, labs)? Why? @ -X-ray of the chest was considered however patient refused What meds were considered but not given or refused? Why? @ -None Did you discuss the management of the patient with other professionals (professionals i.e. DrSandra, PA, INFORMATION SYSTEMS CONSULTANT, lab, RT, psych nurse, dialysis social worker, jackaroo, teacher, licensed loan officer, spring encaser)? Give summary @ -I spoke with Dr. Donovan at [facility] he does accept transfer the patient. I also spoke with Dr. Shi who will consult on the patient from medicine once that she is gone Was smoking cessation discussed for >3mins.? @ -No Was critical care preformed (if so, how long)? @ -No Were there social determinants of health that impacted care today? How? (Homelessness, low income, unemployed, alcoholism, drug addiction, transportation, low edu. Level, literacy, decrease access to med. care, shelter, rehab)? @ -No Was there de-escalation of care discussed even if they declined (Discuss DNR or withdrawal of care, Hospice)? DNR status @ -No What co-morbidities impacted this encounter? (DM, HTN, Smoking, COPD, CAD, Ca ncer, CVA, ARF, Chemo, Hep., AIDS, mental health diagnosis, sleep apnea, morbid obesity)? @ -Ovarian cancer, pancreatic stricture, hydronephrosis Was patient admitted / discharged? Hospital course, mention meds given and route, prescriptions, significant lab abnormalities, going to OR and other per tinent info. @ -Upon arrival patient was seen and evaluated in trauma 2. Thorough history and physical exam was performed. Patient given intravenous fluids. IV is established. Laboratory studies are reviewed. Liver enzymes are markedly elevated from where they were when the patient was discharged from the hospital. Because of this I did repeat a CT of her abdomen and pelvis. White count is elevated. Patient is given an empiric dose of antibiotics. Patient does require transfer back to [facility] this is where she recently had intervention. Patient was agreeable to this. Called and spoke with Dr. Rodriguez. He does accept transfer the patient. Patient is currently awaiting a bed. I will consult Dr. Shi to manage the patient from medicine until she is transferred Undiagnosed new problem with uncertain prognosis? @ -No Drug Therapy requiring intensive monitoring for toxicity (Heparin, Nitro, Insulin, Cardizem)? @ -No Were any procedures done? @ -No Diagnosis/symptom? @ -acute abd pain, acute vomiting, possible outlet obstruction, transaminitis, recent nephrostomy tube placement Acute, or Chronic, or Acute on Chronic? @ -Acute on chronic Uncomplicated (without systemic symptoms) or Complicated (systemic symptoms)? @ -Complicated Side effects of treatment? @ -No Exacerbation, Progression, or Severe Exacerbation? @ -No Poses a threat to life or bodily function? How? (Chest pain, USA, IA, pneumonia, PE, COPD, DKA, ARF, appy, cholecystitis, CVA, Diverticulitis, Homicidal, Suicidal, threat to staff... and all critical care pts) @ -No - Lab Data Result diagrams: 09/12/23 23:50 09/12/23 23:50 Lab Results 09/12/23 09/12/23 09/12/23 Range/Units 23:50 23:50 23:50 WBC 15.0 H (3.8-10.6) k/uL RBC 4.37 (3.80-5.40) m/uL Hgb 13.4 (11.4-16.0) gm/dL Hct 40.2 (34.0-46.0) % MCV 91.9 D (80.0-100.0) fL MCH 30.7 (25.0-35.0) pg MCHC 33.4 (31.0-37.0) g/dL RDW 12.5 (11.5-15.5) % Plt Count 312 (150-450) k/uL MPV 8.1 Neutrophils % Not Reportable Neutrophils % (Manual) 79 % Band Neuts % (Manual) 18 % Lymphocytes % Not Reportable Lymphocytes % (Manual) 2 % Monocytes % Not Reportable Monocytes % (Manual) 1 % Eosinophils % Not Reportable Basophils % Not Reportable Neutrophils # Not Reportable Neutrophils # (Manual) 14.50 H (1.3-7.7) k/uL Lymphocytes # Not Reportable Lymphocytes # (Manual) 0.30 L (1.0-4.8) k/uL Monocytes # Not Reportable Monocytes # (Manual) 0.15 (0-1.0) k/uL Eosinophils # Not Reportable Basophils # Not Reportable Nucleated RBCs 0 (0-0) /100 WBC Manual Slide Review Performed Toxic Vacuolation Present RBC Morphology Normal PT (10.0-12.5) sec INR (<1.2) Sodium 127 L (137-145) mmol/L Potassium 4.2 (3.5-5.1) mmol/L Chloride 97 L (98-107) mmol/L Carbon Dioxide 20 L (22-30) mmol/L Anion Gap 10 mmol/L BUN 42 H (7-17) mg/dL Creatinine 1.39 H (0.52-1.04) mg/dL Est GFR (CKD-EPI)AfAm 45 (>60 ml/min/1.73 sqM) Est GFR (CKD-EPI)NonAf 39 (>60 ml/min/1.73 sqM) Glucose 112 H (74-99) mg/dL Plasma Lactic Acid Kishor (0.7-2.0) mmol/L Calcium 8.7 (8.4-10.2) mg/dL Total Bilirubin 4.4 H (0.2-1.3) mg/dL Conjugated Bilirubin 1.8 H (0.0-0.3) mg/dL Unconjugated Bilirubin 0.6 (0.0-1.1) mg/dL Delta Bilirubin 2.0 H (0.0-0.2) mg/dL AST 637 H (14-36) U/L ALT 393 H (4-34) U/L Alkaline Phosphatase 760 H (38-126) U/L Total Protein 5.9 L (6.3-8.2) g/dL Albumin 2.9 L (3.5-5.0) g/dL Lipase 166 (23-300) U/L Urine Color Red Urine Appearance Cloudy H (Clear) Urine pH 6.0 (5.0-8.0) Ur Specific [place] 1.017 (1.001-1.035) Urine Protein 2+ H (Negative) Urine Glucose (UA) Negative (Negative) Urine Ketones Trace H (Negative) Urine Blood Moderate H (Negative) Urine Nitrite Negative (Negative) Urine Bilirubin Negative (Negative) Urine Urobilinogen <2.0 (<2.0) mg/dL Ur Leukocyte Esterase Large H (Negative) Urine RBC >182 H (0-5) /hpf Urine WBC 120 H (0-5) /hpf Ur Squamous Epith Cells 1 (0-4) /hpf Hyaline Casts 73 H (0-2) /lpf Urine Mucus Occasional H (None) /hpf Acetaminophen ug/mL Influenza Type A (PCR) (Not Detectd) Influenza Type B (PCR) (Not Detectd) RSV (PCR) (Not Detectd) SARS-CoV-2 (PCR) (Not Detectd) 09/12/23 09/12/23 09/12/23 Range/Units 23:50 23:50 23:50 WBC (3.8-10.6) k/uL RBC (3.80-5.40) m/uL Hgb (11.4-16.0) gm/dL Hct (34.0-46.0) % MCV (80.0-100.0) fL MCH (25.0-35.0) pg MCHC (31.0-37.0) g/dL RDW (11.5-15.5) % Plt Count (150-450) k/uL MPV Neutrophils % Neutrophils % (Manual) % Band Neuts % (Manual) % Lymphocytes % Lymphocytes % (Manual) % Monocytes % Monocytes % (Manual) % Eosinophils % Basophils % Neutrophils # Neutrophils # (Manual) (1.3-7.7) k/uL Lymphocytes # Lymphocytes # (Manual) (1.0-4.8) k/uL Monocytes # Monocytes # (Manual) (0-1.0) k/uL Eosinophils # Basophils # Nucleated RBCs (0-0) /100 WBC Manual Slide Review Toxic Vacuolation RBC Morphology PT (10.0-12.5) sec INR (<1.2) Sodium (137-145) mmol/L Potassium (3.5-5.1) mmol/L Chloride (98-107) mmol/L Carbon Dioxide (22-30) mmol/L Anion Gap mmol/L BUN (7-17) mg/dL Creatinine (0.52-1.04) mg/dL Est GFR (CKD-EPI)AfAm (>60 ml/min/1.73 sqM) Est GFR (CKD-EPI)NonAf (>60 ml/min/1.73 sqM) Glucose (74-99) mg/dL Plasma Lactic Acid Kishor 2.0 (0.7-2.0) mmol/L Calcium (8.4-10.2) mg/dL Total Bilirubin (0.2-1.3) mg/dL Conjugated Bilirubin (0.0-0.3) mg/dL Unconjugated Bilirubin (0.0-1.1) mg/dL Delta Bilirubin (0.0-0.2) mg/dL AST (14-36) U/L ALT (4-34) U/L Alkaline Phosphatase (38-126) U/L Total Protein (6.3-8.2) g/dL Albumin (3.5-5.0) g/dL Lipase (23-300) U/L Urine Color Urine Appearance (Clear) Urine pH (5.0-8.0) Ur Specific [place] (1.001-1.035) Urine Protein (Negative) Urine Glucose (UA) (Negative) Urine Ketones (Negative) Urine Blood (Negative) Urine Nitrite (Negative) Urine Bilirubin (Negative) Urine Urobilinogen (<2.0) mg/dL Ur Leukocyte Esterase (Negative) Urine RBC (0-5) /hpf Urine WBC (0-5) /hpf Ur Squamous Epith Cells (0-4) /hpf Hyaline Casts (0-2) /lpf Urine Mucus (None) /hpf Acetaminophen <10.0 ug/mL Influenza Type A (PCR) Not Detected (Not Detectd) Influenza Type B (PCR) Not Detected (Not Detectd) RSV (PCR) Not Detected (Not Detectd) SARS-CoV-2 (PCR) Not Detected (Not Detectd) 09/13/23 Range/Units 06:25 WBC (3.8-10.6) k/uL RBC (3.80-5.40) m/uL Hgb (11.4-16.0) gm/dL Hct (34.0-46.0) % MCV (80.0-100.0) fL MCH (25.0-35.0) pg MCHC (31.0-37.0) g/dL RDW (11.5-15.5) % Plt Count (150-450) k/uL MPV Neutrophils % Neutrophils % (Manual) % Band Neuts % (Manual) % Lymphocytes % Lymphocytes % (Manual) % Monocytes % Monocytes % (Manual) % Eosinophils % Basophils % Neutrophils # Neutrophils # (Manual) (1.3-7.7) k/uL Lymphocytes # Lymphocytes # (Manual) (1.0-4.8) k/uL Monocytes # Monocytes # (Manual) (0-1.0) k/uL Eosinophils # Basophils # Nucleated RBCs (0-0) /100 WBC Manual Slide Review Toxic Vacuolation RBC Morphology PT 12.6 H (10.0-12.5) sec INR 1.2 H (<1.2) Sodium (137-145) mmol/L Potassium (3.5-5.1) mmol/L Chloride (98-107) mmol/L Carbon Dioxide (22-30) mmol/L Anion Gap mmol/L BUN (7-17) mg/dL Creatinine (0.52-1.04) mg/dL Est GFR (CKD-EPI)AfAm (>60 ml/min/1.73 sqM) Est GFR (CKD-EPI)NonAf (>60 ml/min/1.73 sqM) Glucose (74-99) mg/dL Plasma Lactic Acid Kishor (0.7-2.0) mmol/L Calcium (8.4-10.2) mg/dL Total Bilirubin (0.2-1.3) mg/dL Conjugated Bilirubin (0.0-0.3) mg/dL Unconjugated Bilirubin (0.0-1.1) mg/dL Delta Bilirubin (0.0-0.2) mg/dL AST (14-36) U/L ALT (4-34) U/L Alkaline Phosphatase (38-126) U/L Total Protein (6.3-8.2) g/dL Albumin (3.5-5.0) g/dL Lipase (23-300) U/L Urine Color Urine Appearance (Clear) Urine pH (5.0-8.0) Ur Specific [place] (1.001-1.035) Urine Protein (Negative) Urine Glucose (UA) (Negative) Urine Ketones (Negative) Urine Blood (Negative) Urine Nitrite (Negative) Urine Bilirubin (Negative) Urine Urobilinogen (<2.0) mg/dL Ur Leukocyte Esterase (Negative) Urine RBC (0-5) /hpf Urine WBC (0-5) /hpf Ur Squamous Epith Cells (0-4) /hpf Hyaline Casts (0-2) /lpf Urine Mucus (None) /hpf Acetaminophen ug/mL Influenza Type A (PCR) (Not Detectd) Influenza Type B (PCR) (Not Detectd) RSV (PCR) (Not Detectd) SARS-CoV-2 (PCR) (Not Detectd) Disposition Clinical Impression: Nausea and vomiting, Elevated LFTs, Epigastric pain Disposition: OTHER INSTITUTION NOT DEFINED Condition: Serious Is patient prescribed a controlled substance at d/c from ED?: No Referrals: Liza Levine MD [Primary Care Provider] - 1-2 days - Out of Hospital Transfer - Req. Specs Out of Hospital Transfer - Requested Specifics: Other Non-Acute ([facility])
[2023-09-13 00:54] LABS: HCT 40.2 % (34.0-46.0); HGB 13.4 gm/dL (11.4-16.0); MCH 30.7 pg (25.0-35.0); MCHC 33.4 g/dL (31.0-37.0); Mean Platelet Volume 8.1; Platelet Count 312 k/uL (150-450); RBC 4.37 m/uL (3.80-5.40); RDW 12.5 % (11.5-15.5)
[2023-09-13 00:55] LABS: MCV 91.9 fL (80.0-100.0)
[2023-09-13 01:03] LABS: Chloride 97 mmol/L (98-107)
[2023-09-13 01:04] LABS: ALT 393 U/L (4-34); AST 637 U/L (14-36); African American GFR (CKD) 45 (>60 ml/min/1.73 sqM); Albumin 2.9 g/dL (3.5-5.0); Anion Gap 10 mmol/L; Bilirubin, Conjugated 1.8 mg/dL (0.0-0.3); Bilirubin,Unconjugated 0.6 mg/dL (0.0-1.1); Blood Urea Nitrogen 42 mg/dL (7-17); Calcium 8.7 mg/dL (8.4-10.2); Carbon Dioxide 20 mmol/L (22-30); Glucose 112 mg/dL (74-99); Lipase 166 U/L (23-300); Non-African American GFR(CKD) 39 (>60 ml/min/1.73 sqM); Potassium 4.2 mmol/L (3.5-5.1); Sodium 127 mmol/L (137-145); Total Bilirubin 4.4 mg/dL (0.2-1.3); Total Protein 5.9 g/dL (6.3-8.2)
[2023-09-13 01:06] LABS: Appearance,Urine Cloudy (Clear); Bilirubin,Urine Negative (Negative); Blood,Urine Moderate (Negative); Color,Urine Red; Glucose,Urine (UA) Negative (Negative); Hyaline Casts,Urine 73 /lpf (0-2); Ketones,Urine Trace (Negative); Leukocyte Esterase,Urine Large (Negative); Mucus,Urine Occasional /hpf; Nitrite,Urine Negative (Negative); Protein,Urine 2+ (Negative); RBC,Urine >182 /hpf (0-5); Specific Gravity,Urine 1.017 (1.001-1.035); Squamous Epithelial Cell,Urine 1 /hpf (0-4); Urobilinogen,Urine <2.0 mg/dL (<2.0); WBC,Urine 120 /hpf (0-5)
[2023-09-13 01:07] LABS: Alkaline Phosphatase 760 U/L (38-126)
[2023-09-13 01:19] LABS: Band Neutrophils % 18 %; Monocytes # (M) 0.15 k/uL (0-1.0); Neutrophils % (M) 79 %; Nucleated Red Blood Cells 0 /100 WBC (0-0); RBC Morphology Normal; Total Cells Counted 100
[2023-09-13 01:20] LABS: Toxic Vacuolation Present
[2023-09-13] MEDS: fentaNYL (PF) 50 MCG/ML 2 ML AMP IVP STA (02:51)
[2023-09-13] MEDS: CEFEPIME 2 GM in SODIUM CHLORIDE 0.9% 100 ML IVPB STA (03:22)
[2023-09-13] MEDS: metroNIDAZOLE-NS PMX 500 MG in SALINE 1 100ML.BAG IVPB STA (03:57)
--- NOTE | 2023-09-13 04:46 | CT ---
EXAM: CT Abdomen and Pelvis With Intravenous Contrast CLINICAL HISTORY: ITS.REASON CT Reason: abd pain, worsening liver enzymes, recent stent TECHNIQUE: Axial computed tomography images of the abdomen and pelvis with intravenous contrast. CTDI is 14.4 mGy and DLP is 774.4 mGy-cm. This CT exam was performed using one or more of the following dose reduction techniques: automated exposure control, adjustment of the mA and/or kV according to patient size, and/or use of iterative reconstruction technique. COMPARISON: No relevant prior studies available. FINDINGS: Lung bases: Unremarkable. No mass. No consolidation. ABDOMEN: Liver: See below. Gallbladder and bile ducts: Internalized biliary stent noted with proximal portion in the common duct and distal portion in the duodenum. Severe intrahepatic biliary dilatation noted. Consider correlation with comparison imaging. Pneumobilia which is favored to be postprocedural in nature. No calcified stones. Pancreas: Unremarkable. No mass. No ductal dilation. Spleen: Unremarkable. No splenomegaly. Adrenals: Unremarkable. No mass. Kidneys and ureters: Bilateral nephroureteral stents noted with proximal coils in the left renal pelvises and distal coils in the decompressed bladder. No hydronephrosis. Stomach and bowel: Diffuse gastric distention. The etiology of this is indeterminate. PELVIS: Appendix: No findings to suggest acute appendicitis. Bladder: Unremarkable. No mass. Reproductive: Unremarkable as visualized. ABDOMEN and PELVIS: Intraperitoneal space: Moderate mesenteric ascites. No free air. Retroperitoneal space: Retroperitoneal surgical clips noted at the level of the pancreas. Bones/joints: Degenerative changes in the spine. No acute fracture. No dislocation. Soft tissues: Anasarca. Vasculature: Unremarkable. No abdominal aortic aneurysm. Lymph nodes: Prominent and enlarged mesenteric lymph nodes which appear to be in conglomerate near the pancreas. Findings may be metastatic in nature. Please note that no history of metastatic disease was provided. Recommend continued attention on follow-up imaging as dictated per patient's primary malignancy. IMPRESSION: 1. Internalized biliary stent noted with proximal portion in the common duct and distal portion in the duodenum. Severe intrahepatic biliary dilatation noted. Consider correlation with comparison imaging. 2. Pneumobilia which is favored to be postprocedural in nature. 3. Diffuse gastric distention. The etiology of this is indeterminate. 4. No other acute findings. 5. Incidental findings as described.
[2023-09-13 06:51] LABS: INR 1.2 (<1.2); Prothrombin Time 12.6 sec (10.0-12.5)
[2023-09-13] MEDS ORDERED: ONDANSETRON 4 MG/2 ML VIAL IVP PRN (07:19)
[2023-09-13 08:02] VITALS: RESP 18
[2023-09-13] MEDS ORDERED: diphenhydrAMINE 25 MG CAP PO PRN (11:12)
[2023-09-13] MEDS ORDERED: LORazepam 0.5 MG TAB PO PRN (11:14)
--- NOTE | 2023-09-13 11:21 | P.CONS ---
History of Present Illness - Reason for Consult Consult date: 09/13/23 - History of Present Illness this is a 67-year-old female patient of Dr. Levine who presented to the ER with concerns of nausea vomiting fever. patient has a history of metastatic ovarian cancer who was recently hospitalized at [facility] main received a pancreatic stent as well as 2 nephrostomy tubes patient was discharged on Monday but states that since she's been home she has not been able to eat or drink much and st arted having fevers and chills.CT of abdomen and pelvis completed showing internalized biliary stent noted with proximal portion of the common duct and distal portions [place]. Intrahepatic biliary dilation noted consider correlation with comparison imaging sonia which is favored to be postprocedural in nature diffuse gastric distention no acute findings.UA positive for urinary tract infection. Liver enzymes significantly elevated AST 637 ALT 390. Alkaline phosphatase 760. Sodium 127. Patient will be transferred to [facility] course the ER. While patient is waiting for transfer patient will be maintained on IV antibiotics and infectious disease services consulted blood culture also ordered. Review of Systems please refer to HPI otherwise unremarkable Past Medical History Past Medical History: Cancer, Renal Disease Additional Past Medical History / Comment(s): Cellulitis legs, Ovarian CA-not treating History of Any Multi-Drug Resistant Organisms: None Reported Past Surgical History: No Surgical Hx Reported, Heart Catheterization With Stent Additional Past Surgical History / Comment(s): 2016 tumor removed Past Psychological History: No Psychological Hx Reported Smoking Status: Never smoker Past Alcohol Use History: None Reported Past Drug Use History: None Reported - Past Family History Father Family Medical History: No Reported History Medications and Allergies Home Medications Medication Instructions Recorded Confirmed Type Pantoprazole [Protonix] 40 mg PO DAILY 30 Days #30 tab 08/18/23 09/13/23 Rx Acetaminophen Tab [Tylenol] 650 mg PO Q6H PRN 09/13/23 09/13/23 History Docusate [Colace] 100 mg PO BID PRN 09/13/23 09/13/23 History Simethicone Chew [Mylicon Chew] 160 mg PO QID 09/13/23 09/13/23 History Allergies Allergy/AdvReac Type Severity Reaction Status Date / Time cat dander Allergy eye Verified 09/13/23 08:52 swelling & itching poison chris extract Allergy Rash/Hives Verified 09/13/23 08:52 Physical Exam Vitals: Vital Signs Temp Pulse Resp BP Pulse Ox 09/13/23 07:00 96 18 97/59 97 09/13/23 05:11 94 16 95/64 98 09/13/23 04:00 97 16 85/58 95 09/13/23 03:00 99 18 104/64 99 09/13/23 02:35 99 16 93/60 98 09/13/23 02:14 101 H 16 83/58 97 09/13/23 00:23 95 16 82/53 95 09/12/23 23:23 98.3 F 109 H 18 92/60 95 09/12/23 22:48 97.6 F 124 H 20 83/64 94 L Intake and Output 09/12/23 09/13/23 09/13/23 22:59 06:59 14:59 Other: Weight 56.699 kg Head normocephalic Neck supple Lungs clear to auscultation bilaterally no wheezing or crackles Heart regular rate and rhythm S1-S2, no rub or gallop Abdomen is soft nontender nondistended positive bowel sounds no h epatosplenomegaly. Nephrostomy tubes in place Extremities no edema Neuro alert and orientated to 3 Results CBC & Chem 7: 09/12/23 23:50 09/12/23 23:50 Labs: Abnormal Lab Results - Last 24 Hours (Table) 09/12/23 09/12/23 09/12/23 Range/Units 23:50 23:50 23:50 WBC 15.0 H (3.8-10.6) k/uL Neutrophils # (Manual) 14.50 H (1.3-7.7) k/uL Lymphocytes # (Manual) 0.30 L (1.0-4.8) k/uL PT (10.0-12.5) sec INR (<1.2) Sodium 127 L (137-145) mmol/L Chloride 97 L (98-107) mmol/L Carbon Dioxide 20 L (22-30) mmol/L BUN 42 H (7-17) mg/dL Creatinine 1.39 H (0.52-1.04) mg/dL Glucose 112 H (74-99) mg/dL Total Bilirubin 4.4 H (0.2-1.3) mg/dL Conjugated Bilirubin 1.8 H (0.0-0.3) mg/dL Delta Bilirubin 2.0 H (0.0-0.2) mg/dL AST 637 H (14-36) U/L ALT 393 H (4-34) U/L Alkaline Phosphatase 760 H (38-126) U/L Total Protein 5.9 L (6.3-8.2) g/dL Albumin 2.9 L (3.5-5.0) g/dL Urine Appearance Cloudy H (Clear) Urine Protein 2+ H (Negative) Urine Ketones Trace H (Negative) Urine Blood Moderate H (Negative) Ur Leukocyte Esterase Large H (Negative) Urine RBC >182 H (0-5) /hpf Urine WBC 120 H (0-5) /hpf Hyaline Casts 73 H (0-2) /lpf Urine Mucus Occasional H (None) /hpf 09/13/23 Range/Units 06:25 WBC (3.8-10.6) k/uL Neutrophils # (Manual) (1.3-7.7) k/uL Lymphocytes # (Manual) (1.0-4.8) k/uL PT 12.6 H (10.0-12.5) sec INR 1.2 H (<1.2) Sodium (137-145) mmol/L Chloride (98-107) mmol/L Carbon Dioxide (22-30) mmol/L BUN (7-17) mg/dL Creatinine (0.52-1.04) mg/dL Glucose (74-99) mg/dL Total Bilirubin (0.2-1.3) mg/dL Conjugated Bilirubin (0.0-0.3) mg/dL Delta Bilirubin (0.0-0.2) mg/dL AST (14-36) U/L ALT (4-34) U/L Alkaline Phosphatase (38-126) U/L Total Protein (6.3-8.2) g/dL Albumin (3.5-5.0) g/dL Urine Appearance (Clear) Urine Protein (Negative) Urine Ketones (Negative) Urine Blood (Negative) Ur Leukocyte Esterase (Negative) Urine RBC (0-5) /hpf Urine WBC (0-5) /hpf Hyaline Casts (0-2) /lpf Urine Mucus (None) /hpf Assessment and Plan Assessment: 1. Fever with nausea and vomiting 2. History of ovarian cancer with metastatic disease 3. Recent pancreatic stent and nephrostomy stent 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 Elevated liver enzymes 5. Evidence of urinary tract infection Patient started on IV antibiotics Awaiting transfer to [facility] Infectious disease service is consulted Blood culture ordered
[2023-09-13] MEDS: SODIUM CHLORIDE 0.9% 1,000 ML IV SCH (13:19)
[2023-09-13] MEDS: fentaNYL (PF) 50 MCG/ML 2 ML AMP IVP PRN (14:23)
[2023-09-13 19:19] VITALS: BP 106/69; PULSE 79; TEMP 97.3
--- NOTE | 2023-09-13 22:12 | P.CONS ---
History of Present Illness - Reason for Consult Consult date: 09/13/23 Fevers Requesting physician: Philippe Shi - Chief Complaint Weakness nausea unable to keep anything down x few days - History of Present Illness Patient is a 67-year-old female with a past medical history significant for ovarian cancer in this patient who did have evidence of urinary outflow obstruction requiring recent bilateral nephrostomy tube placement ani ent presenting to the ER for evaluation of nausea and vomiting patient complaining of unable to eat or drink anything has been complaining of some abdominal pain mostly burning mild to moderate intensity without any radiation patient denies high-grade fever or any chills denies any headache or URI s ymptoms no chest pain or shortness of breath occasional cough dry heaves unable to keep anything some burning abdominal pain as mentioned earlier patient did have output in her bilateral nephrostomy and urine is clearing are not as bloody no diarrhea or constipation on presentation to the hospital the patient was afebrile and no fever have recorded subsequently patient was tachycardic and mildly hypertensive but not requiring any pressor support patient was not hypoxic or need for supplemental oxygen did have a white count of 15,000 with a left shift BUN/creatinine has been mildly elevated liver enzymes are elevated urine has been positive influenza RSV COVID testing was negative patient did have abdominal pelvis CT did show some biliary stent severe intrahepatic biliary dilatation pneumobilia diffuse gastric distention no other acute findings patient was started on cefepime infectious was consulted for further management of her by therapy patient in the process of getting transferred to [facility] for further treatment as per discussion with the medical team Review of Systems Positive point and negatives has been mentioned in the HPI, complete review of systems was performed and all other systems are negative Past Medical History Past Medical History: Cancer, Renal Disease Additional Past Medical History / Comment(s): Cellulitis legs, Ovarian CA-not treating History of Any Multi-Drug Resistant Organisms: None Reported Past Surgical History: No Surgical Hx Reported, Heart Catheterization With Stent Additional Past Surgical History / Comment(s): 2016 tumor removed Past Psychological History: No Psychological Hx Reported Smoking Status: Never smoker Past Alcohol Use History: None Reported Past Drug Use History: None Reported - Past Family History Father Family Medical History: No Reported History Medications and Allergies Home Medications Medication Instructions Recorded Confirmed Type Pantoprazole [Protonix] 40 mg PO DAILY 30 Days #30 tab 08/18/23 09/13/23 Rx Acetaminophen Tab [Tylenol] 650 mg PO Q6H PRN 09/13/23 09/13/23 History Docusate [Colace] 100 mg PO BID PRN 09/13/23 09/13/23 History Simethicone Chew [Mylicon Chew] 160 mg PO QID 09/13/23 09/13/23 History Allergies Allergy/AdvReac Type Severity Reaction Status Date / Time cat dander Allergy eye Verified 09/13/23 08:52 swelling & itching poison chris extract Allergy Rash/Hives Verified 09/13/23 08:52 Physical Exam Vitals: Vital Signs Temp Pulse Resp BP Pulse Ox 09/13/23 07:00 96 18 97/59 97 09/13/23 05:11 94 16 95/64 98 09/13/23 04:00 97 16 85/58 95 09/13/23 03:00 99 18 104/64 99 09/13/23 02:35 99 16 93/60 98 09/13/23 02:14 101 H 16 83/58 97 09/13/23 00:23 95 16 82/53 95 09/12/23 23:23 98.3 F 109 H 18 92/60 95 09/12/23 22:48 97.6 F 124 H 20 83/64 94 L Intake and Output 09/12/23 09/13/23 09/13/23 22:59 06:59 14:59 Other: Weight 56.699 kg GENERAL DESCRIPTION: Elderly female up in the chair no distress. No tachypnea or accessory muscle of respiration use. HEENT: Shows Pallor , no scleral icterus. Oral mucous membrane is dry. No pharyngeal erythema or thrush NECK: Trachea central, no thyromegaly. LUNGS: Unlabored breathing. Clear to auscultation anteriorly. No wheeze or crackle. HEART: S1, S2, regular rate and rhythm. No loud murmur ABDOMEN: Soft, mild tenderness EXTREMITIES: No edema of feet. SKIN: No rash, no masses palpable. NEUROLOGICAL: The patient is awake, alert, oriented x3, mood and affect normal. Results CBC & Chem 7: 09/12/23 23:50 09/12/23 23:50 Labs: Abnormal Lab Results - Last 24 Hours (Table) 09/12/23 09/12/23 09/12/23 Range/Units 23:50 23:50 23:50 WBC 15.0 H (3.8-10.6) k/uL Neutrophils # (Manual) 14.50 H (1.3-7.7) k/uL Lymphocytes # (Manual) 0.30 L (1.0-4.8) k/uL PT (10.0-12.5) sec INR (<1.2) Sodium 127 L (137-145) mmol/L Chloride 97 L (98-107) mmol/L Carbon Dioxide 20 L (22-30) mmol/L BUN 42 H (7-17) mg/dL Creatinine 1.39 H (0.52-1.04) mg/dL Glucose 112 H (74-99) mg/dL Total Bilirubin 4.4 H (0.2-1.3) mg/dL Conjugated Bilirubin 1.8 H (0.0-0.3) mg/dL Delta Bilirubin 2.0 H (0.0-0.2) mg/dL AST 637 H (14-36) U/L ALT 393 H (4-34) U/L Alkaline Phosphatase 760 H (38-126) U/L Total Protein 5.9 L (6.3-8.2) g/dL Albumin 2.9 L (3.5-5.0) g/dL Urine Appearance Cloudy H (Clear) Urine Protein 2+ H (Negative) Urine Ketones Trace H (Negative) Urine Blood Moderate H (Negative) Ur Leukocyte Esterase Large H (Negative) Urine RBC >182 H (0-5) /hpf Urine WBC 120 H (0-5) /hpf Hyaline Casts 73 H (0-2) /lpf Urine Mucus Occasional H (None) /hpf 09/13/23 Range/Units 06:25 WBC (3.8-10.6) k/uL Neutrophils # (Manual) (1.3-7.7) k/uL Lymphocytes # (Manual) (1.0-4.8) k/uL PT 12.6 H (10.0-12.5) sec INR 1.2 H (<1.2) Sodium (137-145) mmol/L Chloride (98-107) mmol/L Carbon Dioxide (22-30) mmol/L BUN (7-17) mg/dL Creatinine (0.52-1.04) mg/dL Glucose (74-99) mg/dL Total Bilirubin (0.2-1.3) mg/dL Conjugated Bilirubin (0.0-0.3) mg/dL Delta Bilirubin (0.0-0.2) mg/dL AST (14-36) U/L ALT (4-34) U/L Alkaline Phosphatase (38-126) U/L Total Protein (6.3-8.2) g/dL Albumin (3.5-5.0) g/dL Urine Appearance (Clear) Urine Protein (Negative) Urine Ketones (Negative) Urine Blood (Negative) Ur Leukocyte Esterase (Negative) Urine RBC (0-5) /hpf Urine WBC (0-5) /hpf Hyaline Casts (0-2) /lpf Urine Mucus (None) /hpf Assessment and Plan (1) UTI (urinary tract infection) Status: Acute Code(s): N39.0 - URINARY TRACT INFECTION, SITE NOT SPECIFIED SNOMED Code(s): 18621951 (2) Elevated LFTs Status: Acute Code(s): R79.89 - OTHER SPECIFIED ABNORMAL FINDINGS OF BLOOD CHEMISTRY SNOMED Code(s): 429656104 (3) SIRS (systemic inflammatory response syndrome) Status: Acute Code(s): R65.10 - SIRS OF NON-INFECTIOUS ORIGIN W/O ACUTE ORGAN DYSFUNCTION SNOMED Code(s): 808931061 Plan: 1patient presenting with SIRS/sepsis in this patient who did have a tachycardia elevated white count with recent multiple procedure done at [facility] including bilateral nephrostomy tube as well as biliary stent did have significa ntly positive UA and elevated liver enzymes concerning for possible cholangitis versus pyelonephritis likely from enteric gram-negative pathogen 2-we will recommend cefepime 2 g every 8 hours awaiting for the culture to finalize Multiple question concern were answered We will follow on clinical condition and cultures to further adjust medication if needed Thank you for this consultation we will follow the patient along with you Dictation was produced using [employer] dictation software. please excuse any grammatical, word or spelling errors. Time with Patient: Greater than 30
== END 2023-09-13 20:00 | disposition other institution (70) ==
LOC: EC 22:42
DX: R10.13 Epigastric pain (principal); R11.2 Nausea with vomiting, unspecified; R74.01 Elevation of levels of liver transaminase levels; Z88.8 Allergy status to other drugs, medicaments and biological substances
CPT/HCPCS: 36415; 74177; 80053; 80143; 81001; 82248; 83605; 83690; 85025; 85610; 87040; 87636; 93005; 96361; 96365; 96368; 96375; 96376; 99285